=== PATIENT | male | born 1990 | race Hispanic/Latino ===

== ENCOUNTER 2018-07-26 13:50 | Inpatient (IN) | payer OTHER ==
[2018-07-26] MEDS ORDERED: Sodium Chloride 0.9% 1,000 ML IV STA (14:24)
--- NOTE | 2018-07-26 14:29 | ED PDOC ---
HPI: Chest Pain Time Seen by Provider: 07/26/18 14:16 Chief Complaint (Nursing): Chest Pain Chief Complaint (Provider): Chest tightness History Per: Patient History/Exam Limitations: no limitations Onset/Duration Of Symptoms: Days (3 weeks) Additional Complaint(s): Pt. with chest tightness for 3 weeks. Saw pcp and got a cxr. Then was scheduled to get a ct with contrast, but it got rescheduled so he came to the ER. Pt. also had a syncope episode on Wednesday where he woke, felt nauseated, and then had a syncope episode. Woke up with pain to the frontal left forehead where he bumped his head. Unsure how long he was out for. No weakness, numbness, tingles, dizziness, palpitations. No neck pain, calf pain, long distance travel. Past Medical History Reviewed: Nursing Documentation, Vital Signs Vital Signs: Last Vital Signs Temp 97.2 F L 07/26/18 13:59 Pulse 106 H 07/26/18 13:59 Resp 18 07/26/18 13:59 BP 132/80 07/26/18 13:59 Pulse Ox 96 07/26/18 13:59 - Medical History PMH: No Chronic Diseases - Surgical History Surgical History: No Surg Hx - Family History Family History: States: Unknown Family Hx - Living Arrangements Living Arrangements: With Family - Home Medications Home Medications: Ambulatory Orders Medication Instructions Recorded Albuterol Sulfate [Ventolin Hfa] 2 puff IH Q4 PRN 07/26/18 RX: Fluticasone Propionate 1 puff IH Q12 07/26/18 [Flovent Hfa] - Allergies Allergies/Adverse Reactions: Allergies Allergy/AdvReac Type Severity Reaction Status Date / Time Penicillins Allergy RASH Verified 07/26/18 14:06 Review of Systems ROS Statement: Except As Marked, All Systems Reviewed And Found Negative Cardiovascular: Positive for: Chest Pain Gastrointestinal: Positive for: Nausea Neurological: Positive for: Headache, Other (syncope) Physical Exam - Reviewed Nursing Documentation Reviewed: Yes Vital Signs Reviewed: Yes - Physical Exam Appears: Positive for: Non-toxic, No Acute Distress Head Exam: Negative for: ATRAUMATIC (small 1cm vertical abrasion to the left forehead, nontender; no echymosis) Skin: Positive for: Normal Color, Warm, DRY Eye Exam: Positive for: EOMI, Normal appearance, PERRL ENT: Positive for: Normal ENT Inspection Neck: Positive for: Normal, Painless ROM Cardiovascular/Chest: Positive for: Regular Rate, Rhythm Respiratory: Positive for: CNT, Normal Breath Sounds Gastrointestinal/Abdominal: Positive for: Normal Exam, Soft. Negative for: Tenderness Back: Positive for: Normal Inspection. Negative for: L CVA Tenderness, R CVA Tenderness Extremity: Positive for: Normal ROM. 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 Negative for: Motor/Sensory Deficits, Aphasia, Facial Droop - Laboratory Results Result Diagrams: 07/28/18 03:30 07/27/18 04:31 Interpretation Of Abn Labs: no acute - ECG ECG: Positive for: Interpreted By Me, Viewed By Me ECG Rhythm: Positive for: Normal QRS, Normal ST Segment, Sinus Rhythm O2 Sat by Pulse Oximetry: 96 Pulse Ox Interpretation: Normal - CT Scan/US ct head Other Rad Studies (CT/US): Read By Radiologist Other Rad Interpretation: no acute - Progress ED Course And Treament: 1547: Stable. AAOx3. Pain free. Dr. Vaughan to take over care. Disposition - Clinical Impression Clinical Impression: Chest pain, Syncope - Patient ED Disposition Is Patient to be Admitted: Transfer of Care Counseled Patient/Family Regarding: Studies Performed, Diagnosis, Need For Followup - Disposition Disposition: Transfer of Care Disposition Time: 15:47 Condition: STABLE Patient Signed Over To: Yael Vaughan
[2018-07-26 14:50] LABS: BASO # 0.1 K/uL (0.0-0.2); BASO % 2.3 % (0.0-2.0); EOS # 0.1 K/uL (0.0-0.7); EOS % 2.5 % (0.0-4.0); HEMOGLOBIN 11.8 g/dL (12.0-18.0); LYMPH # 0.7 K/uL (1.0-4.3); LYMPH % 14.6 % (20.0-40.0); MEAN CORPUSCULAR HEMOGLOBIN 26.3 pg (27.0-31.0); MEAN CORPUSCULAR HGB CONC 32.8 g/dL (33.0-37.0); MEAN PLATELET VOLUME 7.5 fl (7.2-11.7); MONO # 0.5 K/uL (0.0-0.8); MONO % 9.5 % (0.0-10.0); NEUT # 3.5 K/uL (1.8-7.0); NEUT % 71.1 % (50.0-75.0); RBC 4.5 Mil/uL (4.40-5.90); RED CELL DISTRIBUTION WIDTH 14.2 % (11.5-14.5); WHITE BLOOD COUNT 4.9 K/uL (4.8-10.8)
[2018-07-26 15:04] LABS: ALB/GLOB RATIO 1.3 (1.0-2.1)
[2018-07-26 15:08] LABS: ALBUMIN 4.6 g/dL (3.5-5.0); ALT/SGPT 22 U/L (21-72); AST/SGOT 30 U/L (17-59); BLOOD UREA NITROGEN 13 mg/dl (9-20); CALCIUM 9.9 mg/dL (8.4-10.2); GFR NON-AFRICAN AMERICAN > 60
--- NOTE | 2018-07-26 15:14 | CT ---
Date of service: 07/26/2018 PROCEDURE: CT HEAD WITHOUT CONTRAST. HISTORY: Headache COMPARISON: None available. TECHNIQUE: Axial computed tomography images were obtained through the head/brain without intravenous contrast. Radiation dose: Total exam DLP = 814.57 mGy-cm. This CT exam was performed using one or more of the following dose reduction techniques: Automated exposure control, adjustment of the mA and/or kV according to patient size, and/or use of iterative reconstruction technique. FINDINGS: HEMORRHAGE: No intracranial hemorrhage. BRAIN: Mcneal-white matter differentiation is preserved. There is no mass, mass effect or abnormal extra-axial fluid collection. There is no territorial infarction. The midline sagittal structures are normal. VENTRICLES: The ventricles are normal in size, shape and configuration. CALVARIUM: There is no calvarial fracture or extracranial soft tissue swelling. PARANASAL SINUSES: Predominantly clear. MASTOID AIR CELLS: Predominantly clear. OTHER FINDINGS: None. IMPRESSION: No acute intracranial abnormality.
[2018-07-26 15:16] LABS: INR 1.3; PROTHROMBIN TIME 14.3 Seconds (9.8-13.1)
[2018-07-26 15:18] LABS: PARTIAL THROMBOPLASTIN TIME 32.8 Seconds (25.6-37.1)
[2018-07-26] MEDS ORDERED: Sodium Chloride 0.9% 50 ML IV ONE (15:19)
[2018-07-26] MEDS ORDERED: Iodixanol 320 MG/ML 100 ML BOTTLE IV ONE (15:19)
--- NOTE | 2018-07-26 16:36 | ED PDOC ---
- Laboratory Results Result Diagrams: 07/29/18 04:20 07/29/18 04:20 - ECG O2 Sat by Pulse Oximetry: 96 Medical Decision Making Medical Decision Making: Time: 1600 --Patient is endorsed to provider by Dr. Rivera. Patient presents with 3 weeks of chest pain and requesting a CT scan. ED work-up, to this point, has been negative. Pending CTA chest results to R/O PE. Time: 1632 --CTA chest results discussed with radiologist who reports a large pericardial effusion and mediastinal mass. Differential diagnosis includes lymphoma and thymoma. Will contact cardiac surgery and inform patient of findings. ----- Scribe Attestation: Documented by Elodia Sarmiento, acting as a scribe for Yael Vaughan MD. Provider Scribe Attestation: All medical record entries made by the Scribe were at my direction and personally dictated by me. I have reviewed the chart and agree that the record accurately reflects my personal performance of the history, physical exam, medical decision making, and the department course for this patient. I have also personally directed, reviewed, and agree with the discharge instructions and di sposition. 5:09pm --Pt informed of pericardial fluid and mediastinal masses and informed that he w ill need thoracic surgery as well as hematology/oncology workup. Spoke with patient's pmd, Dr. Brad Webb ([phone]) and he is aware of status. Spoke with Dr. He and surgery resident who will evaluate for pericardiocentesis. Spoke with Dr. Ahmadi to admit the patient to telemetry under service. Awaiting hematology consult. Pt remains hemodynamically stable. 2015: Pt has been evaluated by surgery and admitted under Dr. Ahmadi. Disposition - Clinical Impression Clinical Impression: Chest pain, Syncope - POA Present On Arrival: None - Disposition Disposition: Admitted as In-Patient Disposition Time: 17:09 Condition: STABLE
--- NOTE | 2018-07-26 16:37 | CT ---
Date of service: 07/26/2018 PROCEDURE: CT Chest with contrast (Pulmonary Angiogram) HISTORY: Chest pain COMPARISON: None available. TECHNIQUE: Axial computed tomography images were obtained of the chest in the pulmonary arterial phase of enhancement. Coronal and sagittal reformatted images were created and reviewed. Intravenous contrast dose: 92 cc Visipaque 320 Radiation dose: Total exam DLP = 0.0 mGy-cm. This CT exam was performed using one or more of the following dose reduction techniques: Automated exposure control, adjustment of the mA and/or kV according to patient size, and/or use of iterative reconstruction technique. FINDINGS: PULMONARY ARTERIES: Examination is of suboptimal diagnostic quality for evaluation of pulmonary embolism due to missed bolus. There are no filling defects in the central pulmonary arteries to suggest acute pulmonary embolism. AORTA: No acute findings. No thoracic aortic aneurysm. No aortic atherosclerotic calcification or mural plaque present. LUNGS: The lungs are well inflated. There is compressive atelectasis in the medial aspects of both upper lobe, right middle lobe and lingula. There is dependent atelectasis in the posterior lower lobes. No nodule, mass or pulmonary consolidation. PLEURAL SPACES: No effusion or pneumothorax. HEART: There is a large pericardial effusion with mild mass effect on the ventricles. MEDIASTINUM:: There is a large heterogeneously enhancing mass with hypoenhancing areas in the anterior mediastinum. The mass encases the origin of the great vessels with posterior displacement of the aorta and heart. There is resultant severe narrowing of the right main pulmonary artery and left pulmonary vein. There is also mass effect on the trachea and carlos alberto. BONES, CHEST WALL: Within normal limits for the patient's age. No fracture or destructive lesion OTHER FINDINGS: None. IMPRESSION: 1. Large heterogeneously enhancing anterior mediastinal mass. The differential considerations include lymphoma, thymoma, thymic carcinoma, germ cell tumors and metastasis. Histopathologic correlation is recommended. 2. Large pericardial effusion. 3. No CTA evidence for acute central pulmonary embolism. Important findings were discussed with Dr. Vaughan in the ER on 07/26/2018 at 4:25 p.m.
--- NOTE | 2018-07-26 20:18 | CP.PCM.CON ---
<Giovany Lorenzo - Last Filed: 07/26/18 20:19> History of Present Illness - History of Present Illness History of Present Illness: Surgery: Dr. He CC: Chest tightness / SOB HPI: 27M w. no significant pmh presents for evaluation of chest tightness and SOB. Symptoms have been going on for 2-3 months. It has been accompanied by night sweats and a dry non-productive cough. Pts PMD has given Rx inhaler and abx w. no relief. Pt also reports unintentional 10lb weight loss in the past month. He has decreased appetite, no N/V. Normal BM. He denies CP/palpitations. PMH: none PSH: L4-L5 fusion Meds: MAR reviewed ALL: PCN>hives Social: +Marijuana, no ETOH/tobacco Fhx: Grandfather- Prostate CA Review of Systems - Review of Systems All systems: reviewed and no additional remarkable complaints except (HPI) Past Patient History - Past Social History Smoking Status: Never Smoked - PSYCHIATRIC Hx Substance Use: No - SURGICAL HISTORY Other/Comment: back surgery - ANESTHESIA Hx Anesthesia: No Hx Anesthesia Reactions: No Hx Malignant Hyperthermia: No Meds Allergies/Adverse Reactions: Allergies Allergy/AdvReac Type Severity Reaction Status Date / Time Penicillins Allergy RASH Verified 07/26/18 14:06 Physical Exam - Constitutional Appears: Non-toxic, No Acute Distress - Head Exam Head Exam: ATRAUMATIC, NORMOCEPHALIC - Eye Exam Eye Exam: EOMI - ENT Exam ENT Exam: Mucous Membranes Moist - Neck Exam Neck exam: Positive for: Full Rom - Respiratory Exam Respiratory Exam: NORMAL BREATHING PATTERN. absent: Accessory Muscle Use, Respiratory Distress - Cardiovascular Exam Cardiovascular Exam: REGULAR RHYTHM - GI/Abdominal Exam GI & Abdominal Exam: Soft. absent: Tenderness - Extremities Exam Extremities exam: Positive for: normal inspection - Neurological Exam Neurological exam: Alert, Oriented x3 - Psychiatric Exam Psychiatric exam: Normal Affect, Normal Mood - Skin Skin Exam: Dry, Normal Color, Warm Results - Vital Signs Recent Vital Signs: Last Vital Signs Temp 98.1 F 07/26/18 19:52 Pulse 90 07/26/18 19:52 Resp 14 07/26/18 19:52 BP 149/79 07/26/18 19:52 Pulse Ox 95 07/26/18 19:52 - Labs Result Diagrams: 07/26/18 14:40 07/26/18 14:40 Labs: Laboratory Results - last 24 hr 07/26/18 07/26/18 07/26/18 14:40 14:40 14:40 WBC 4.9 RBC 4.50 Hgb 11.8 L Hct 36.0 MCV 80.0 MCH 26.3 L MCHC 32.8 L RDW 14.2 Plt Count 334 MPV 7.5 Neut % (Auto) 71.1 Lymph % (Auto) 14.6 L [place] % (Auto) 9.5 Eos % (Auto) 2.5 Baso % (Auto) 2.3 H Neut # (Auto) 3.5 Lymph # (Auto) 0.7 L [place] # (Auto) 0.5 Eos # (Auto) 0.1 Baso # (Auto) 0.1 PT 14.3 H INR 1.3 APTT 32.8 Sodium 139 Potassium 4.1 Chloride 103 Carbon Dioxide 25 Anion Gap 15 BUN 13 Creatinine 0.9 Est GFR ( Amer) > 60 Est GFR (Non-Af Amer) > 60 Random Glucose 94 Calcium 9.9 Total Bilirubin 1.0 AST 30 ALT 22 Alkaline Phosphatase 60 Troponin I < 0.0120 Total Protein 8.1 Albumin 4.6 Globulin 3.5 Albumin/Globulin Ratio 1.3 - Imaging and Cardiology CT scan - chest Status: Image reviewed by me, Report reviewed by me CT scan - head Status: Image reviewed by me, Report reviewed by me Assessment & Plan - Assessment and Plan (Free Text) Assessment: 27M w. anterior mediastinal mass w. pericardial effusion -recommend tele -F/U ECHO, need for pericardial window will be based on results -F/U tumor markers -Recommend IR for bx -d/w attending Maura PGY4 <Jeramie He - Last Filed: 08/05/18 14:01> Results - Vital Signs Recent Vital Signs: Last Vital Signs Temp 98.9 F 07/29/18 12:00 Pulse 108 H 07/29/18 12:00 Resp 18 07/29/18 12:00 BP 139/81 07/29/18 12:00 Pulse Ox 96 08/02/18 05:38 - Labs Result Diagrams: 07/29/18 04:20 07/29/18 04:20
[2018-07-26] MEDS ORDERED: Albuterol-Ipratrop 3 mg / 0.5 (3 ml) UD INH PRN (23:24)
[2018-07-27 05:30] LABS: HEMOGLOBIN 11.6 g/dL (12.0-18.0); MEAN CORPUSCULAR HEMOGLOBIN 26.2 pg (27.0-31.0); MEAN CORPUSCULAR HGB CONC 32.7 g/dL (33.0-37.0); RBC 4.42 Mil/uL (4.40-5.90); RED CELL DISTRIBUTION WIDTH 14.3 % (11.5-14.5); WHITE BLOOD COUNT 4.6 K/uL (4.8-10.8)
[2018-07-27 05:37] LABS: ALB/GLOB RATIO 1.3 (1.0-2.1); ALBUMIN 4.3 g/dL (3.5-5.0); ALT/SGPT 22 U/L (21-72); AST/SGOT 29 U/L (17-59); BLOOD UREA NITROGEN 11 mg/dl (9-20); CALCIUM 9.8 mg/dL (8.4-10.2); GFR NON-AFRICAN AMERICAN > 60; HDL CHOLESTEROL 27 MG/DL (30-70)
[2018-07-27 05:48] LABS: LDL CHOLESTEROL 120 mg/dL (0-129)
--- NOTE | 2018-07-27 07:01 | CP.PCM.PN ---
Subjective - Date & Time of Evaluation Date of Evaluation: 07/27/18 Time of Evaluation: 06:55 - Subjective Subjective: CT surgery: Dr. He Patient seen and examined this am at bedside. NAEO per nursing. Patient states he is feeling well and has no complaints. He denies SILVEIRA, dizziness, f/c, CP, SOB, n/v, abdominal pain and extremity pain or weakness. Objective - Vital Signs/Intake and Output Vital Signs (last 24 hours): Temp Pulse Resp BP Pulse Ox 98 F 85 18 113/78 97 07/27/18 05:04 07/27/18 05:04 07/27/18 05:04 07/27/18 05:04 07/27/18 05:04 - Medications Medications: Current Medications Albuterol/Ipratropium (Duoneb 3 Mg/0.5 Mg (3 Ml) Ud) 3 ml INH RQ6 PRN PRN Reason: Shortness of Breath Zolpidem Tartrate (Ambien) 5 mg PO HS PRN PRN Reason: Sleep - Labs Labs: 07/27/18 04:31 07/27/18 04:31 PT 14.3 Seconds (9.8-13.1) H 07/26/18 14:40 INR 1.3 07/26/18 14:40 APTT 32.8 Seconds (25.6-37.1) 07/26/18 14:40 - Constitutional Appears: Well, Non-toxic, No Acute Distress - Head Exam Head Exam: ATRAUMATIC, NORMOCEPHALIC - Eye Exam Eye Exam: EOMI - ENT Exam ENT Exam: Mucous Membranes Moist - Respiratory Exam Respiratory Exam: NORMAL BREATHING PATTERN - Cardiovascular Exam Cardiovascular Exam: REGULAR RHYTHM - GI/Abdominal Exam GI & Abdominal Exam: Soft. absent: Distended, Guarding, Tenderness - Extremities Exam Extremities Exam: absent: Calf Tenderness, Pedal Edema - Neurological Exam Neurological Exam: Alert, Awake, Oriented x3 - Psychiatric Exam Psychiatric exam: Normal Affect, Normal Mood - Skin Skin Exam: Dry, Intact, Normal Color, Warm Assessment and Plan - Assessment and Plan (Free Text) Assessment: 27 yr old male with newly diagnosed mediastinal mass and Plan: f/u ECHO F/u IR biopsy f/u tumor markers patient to be transferred to [facility] per patient preference, urgency of transfer discussed with patient and his will d/w Dr. Neri Ventura, PGY 1
--- NOTE | 2018-07-27 07:58 | CARD ---
APPROVED REPORT Date of service: 07/26/2018 EKG Measurement Heart [id number] <Conclusion> Sinus tachycardia Low voltage QRS Borderline ECG
[2018-07-27] MEDS ORDERED: Pneumococcal 23-Valent Vaccine IM ONE (09:00)
[2018-07-27] MEDS ORDERED: Influenza Vaccine 60 MCG/0.5 ML SYR (3 yr & up) IM ONE (09:00)
--- NOTE | 2018-07-27 09:36 | CARD ---
APPROVED REPORT Date of service: 07/27/2018 EXAM: Two-dimensional and M-mode echocardiogram with Doppler and color Doppler. Other Information Quality : GoodRhythm : Tachycardia INDICATION Pericardial Effusion 2D DIMENSIONS IVSd0.91 (0.7-1.1cm)LVDd4.29 (3.9-5.9cm) LVOT Diameter2.50 (1.8-2.4cm)PWd1.08 (0.7-1.1cm) IVSs1.33 (0.8-1.2cm)LVDs2.74 (2.5-4.0cm) FS (%) 36.2 %PWs1.64 (0.8-1.2cm) M-Mode DIMENSIONS Left Atrium (MM)2.28 (2.5-4.0cm)IVSd1.43 (0.7-1.1cm) Aortic Root3.24 (2.2-3.7cm)LVDd4.44 (4.0-5.6cm) Aortic Cusp Exc.2.05 (1.5-2.0cm)PWd1.43 (0.7-1.1cm) IVSs1.93 cmFS (%) 55 % LVDs2.01 (2.0-3.8cm)PWs2.01 cm Mitral Valve E/A ratio0.0 TDI E/Lateral E'0.0E/Medial E'0.0 LEFT VENTRICLE The left ventricle is normal size. There is normal left ventricular wall thickness. The left ventricular function is normal. LVEF is 60-65%. There is normal LV segmental wall motion. The left ventricular diastolic function is normal. RIGHT VENTRICLE The right ventricle is normal size. There is normal right ventricular wall thickness. RV free wall shows buckling during diastole The right ventricular systolic function is normal. ATRIA The left atrium size is normal. Rt atrial free wall shows marked compression during diastole. AORTIC VALVE The aortic valve is normal in structure. No aortic regurgitation is present. There is no aortic valvular stenosis. MITRAL VALVE The mitral valve is normal in structure. There is no evidence of mitral valve prolapse. There is no mitral valve stenosis. There is no mitral valve regurgitation noted. TRICUSPID VALVE The tricuspid valve is normal in structure. There is no tricuspid valve regurgitation noted. PULMONIC VALVE The pulmonic valve is not well visualized. There is no pulmonic valvular regurgitation. GREAT VESSELS The aortic root is normal in size. IVC is dilated and fails to collapse during inspiration. PERICARDIAL EFFUSION Large quantity of pericardial fluid collection mostly anterior to the right ventricle seen <Conclusion> Large quantity of pericardial fluid collection mostly anterior to the right ventricle seen The left ventricular function is normal. LVEF is 60-65%. RV free wall shows buckling during diastole Rt atrial free wall shows marked compression during diastole. IVC is dilated and fails to collapse during inspiration. These findings are strongly suggestive of cardiac temponade. Clinical correlation is strongly reccomended.
--- NOTE | 2018-07-27 10:13 | CP.PCM.CON ---
History of Present Illness - History of Present Illness History of Present Illness: This 27-year-old man with no significant past history except surgery for herniated disc came to the emergency room complaining of a dry cough and a sense of tightness in the chest off and on. This has evolved over last month to month and a half and is accompanied by a mild degree of weight loss. He denies any shortness of breath and reports significant effort tolerance. He denies any orthopnea. He does admit to a dry cough. He denies any palpitations. There is no history of smoking or recreational drug use. Physical examination shows a young man who is slightly overweight alert awake coherent afebrile able to lie virtually flat and carry on a conversation. As a heart rate of 100 bpm and regular with a blood pressure of 148/90 meters of mercury. His jugular venous pressure was mildly elevated there was no edema over his lower extremity. The pedal pulses were well felt. His oximetries were warm and nailbeds were pink. There was no central or peripheral cyanosis. The apex was not palpable. The first and second heart sounds were distant but normal. There was no pericardial rub or pericardial knock. There was no murmur or gallop. Lungs were clear. His electrocardiogram showed sinus tachycardia with lo w QRS voltage. Narrow Q waves were detected in leads 2,3 and aVF. His lab data was noted. His echocardiogram shows a large quantity of pericardial fluid with findings suggestive of early cardiac temponade. A approximately 5 cm mass was seen anterior to the right ventricular free wall. CT scan shows evidence of pericardial effusion and a mediastinal mass as well. Impression: Mediastinal mass of uncertain origin. Pericardial effusion with echocardiographic findings of early cardiac temponade. The patient is hemodynamically stable at this juncture and does not show any evidence of reduced cardiac output or reduced tissue perfusion. The patient and his family wish to continue his care at [facility]. He is stable to make the transition. Past Patient History - Past Medical History & Family History Past Medical History?: No - Past Social History Smoking Status: Never Smoked - CARDIAC Hx Cardiac Disorders: No - PULMONARY Hx Respiratory Disorders: No - NEUROLOGICAL Hx Neurological Disorder: No - HEENT Hx HEENT Problems: No - RENAL Hx Chronic Kidney Disease: No - ENDOCRINE/METABOLIC Hx Endocrine Disorders: No - HEMATOLOGICAL/ONCOLOGICAL Hx Blood Disorders: No - INTEGUMENTARY Hx Dermatological Problems: No - MUSCULOSKELETAL/RHEUMATOLOGICAL Hx Musculoskeletal Disorders: No Hx Falls: No - GENITOURINARY/GYNECOLOGICAL Hx Genitourinary Disorders: No - PSYCHIATRIC Hx Psychophysiologic Disorder: No Hx Substance Use: No - SURGICAL HISTORY Hx Surgeries: Yes Other/Comment: back surgery - ANESTHESIA Hx Anesthesia: Yes Hx Anesthesia Reactions: No Hx Malignant Hyperthermia: No Has any member of the family had a problem w/ anesthesia?: No Meds Allergies/Adverse Reactions: Allergies Allergy/AdvReac Type Severity Reaction Status Date / Time Penicillins Allergy RASH Verified 07/26/18 14:06 - Medications Medications: Current Medications Albuterol/Ipratropium (Duoneb 3 Mg/0.5 Mg (3 Ml) Ud) 3 ml INH RQ6 PRN PRN Reason: Shortness of Breath Zolpidem Tartrate (Ambien) 5 mg PO HS PRN PRN Reason: Sleep Results - Vital Signs Recent Vital Signs: Last Vital Signs Temp 98.2 F 07/27/18 08:08 Pulse 107 H 07/27/18 08:08 Resp 18 07/27/18 08:08 BP 125/72 07/27/18 08:08 Pulse Ox 95 07/27/18 08:08 - Labs Result Diagrams: 07/27/18 04:31 07/27/18 04:31 Labs: Laboratory Results - last 24 hr 07/26/18 07/26/18 07/26/18 14:40 14:40 14:40 WBC 4.9 RBC 4.50 Hgb 11.8 L Hct 36.0 MCV 80.0 MCH 26.3 L MCHC 32.8 L RDW 14.2 Plt Count 334 MPV 7.5 Neut % (Auto) 71.1 Lymph % (Auto) 14.6 L [place] % (Auto) 9.5 Eos % (Auto) 2.5 Baso % (Auto) 2.3 H Neut # (Auto) 3.5 Lymph # (Auto) 0.7 L [place] # (Auto) 0.5 Eos # (Auto) 0.1 Baso # (Auto) 0.1 PT 14.3 H INR 1.3 APTT 32.8 Sodium 139 Potassium 4.1 Chloride 103 Carbon Dioxide 25 Anion Gap 15 BUN 13 Creatinine 0.9 Est GFR ( Amer) > 60 Est GFR (Non-Af Amer) > 60 Random Glucose 94 Calcium 9.9 Total Bilirubin 1.0 AST 30 ALT 22 Alkaline Phosphatase 60 Troponin I < 0.0120 Total Protein 8.1 Albumin 4.6 Globulin 3.5 Albumin/Globulin Ratio 1.3 Triglycerides Cholesterol LDL Cholesterol Direct HDL Cholesterol Alpha Fetoprotein TSH 3rd Generation Beta HCG, Quant 07/26/18 07/26/18 07/27/18 14:40 20:03 04:31 WBC 4.6 L RBC 4.42 Hgb 11.6 L Hct 35.4 MCV 80.0 MCH 26.2 L MCHC 32.7 L RDW 14.3 Plt Count 322 MPV Neut % (Auto) Lymph % (Auto) [place] % (Auto) Eos % (Auto) Baso % (Auto) Neut # (Auto) Lymph # (Auto) [place] # (Auto) Eos # (Auto) Baso # (Auto) PT INR APTT Sodium Potassium Chloride Carbon Dioxide Anion Gap BUN Creatinine Est GFR ( Amer) Est GFR (Non-Af Amer) Random Glucose Calcium Total Bilirubin AST ALT Alkaline Phosphatase Troponin I Total Protein Albumin Globulin Albumin/Globulin Ratio Triglycerides Cholesterol LDL Cholesterol Direct HDL Cholesterol Alpha Fetoprotein 1.5 TSH 3rd Generation Beta HCG, Quant < 2.39 07/27/18 04:31 WBC RBC Hgb Hct MCV MCH MCHC RDW Plt Count MPV Neut % (Auto) Lymph % (Auto) [place] % (Auto) Eos % (Auto) Baso % (Auto) Neut # (Auto) Lymph # (Auto) [place] # (Auto) Eos # (Auto) Baso # (Auto) PT INR APTT Sodium 141 Potassium 4.1 Chloride 105 Carbon Dioxide 25 Anion Gap 15 BUN 11 Creatinine 1.0 Est GFR ( Amer) > 60 Est GFR (Non-Af Amer) > 60 Random Glucose 90 Calcium 9.8 Total Bilirubin 1.0 AST 29 ALT 22 Alkaline Phosphatase 60 Troponin I Total Protein 7.6 Albumin 4.3 Globulin 3.4 Albumin/Globulin Ratio 1.3 Triglycerides 81 Cholesterol 151 LDL Cholesterol Direct 120 HDL Cholesterol 27 L Alpha Fetoprotein TSH 3rd Generation 3.79 Beta HCG, Quant
--- NOTE | 2018-07-27 11:28 | CP.PCM.CON ---
History of Present Illness - History of Present Illness History of Present Illness: 27 year old male with a history of herniated disc s/p surgery presenting with increasing shortness of breath and chest pain, found to have a mediastinal mass and pericardial effusion. The patient notes to progressive chest discomfort and shortness of breath. He notes to passing out 2-3 days ago. He also notes to 15-20 pound weight loss. A CT chest revealed a mediastinal mass and pericardial effusion. His works at [employer] and would like to undergo further work up there. Past medical history: Herniated disc Past surgical history: Back surgery Family history: Denies hematologic and oncologic problems Social history: Denies tobacco, alcohol, and illicit drug use. Allergies: Penicillins Review of systems: All remaining review of systems including HEENT, cardiovascular, respiratory, gastrointestinal, genitourinary, musculoskeletal, dermatologic, neurologic, and psychiatric are negative unless mentioned in the HPI. Past Patient History - Past Medical History & Family History Past Medical History?: No - Past Social History Smoking Status: Never Smoked - CARDIAC Hx Cardiac Disorders: No - PULMONARY Hx Respiratory Disorders: No - NEUROLOGICAL Hx Neurological Disorder: No - HEENT Hx HEENT Problems: No - RENAL Hx Chronic Kidney Disease: No - ENDOCRINE/METABOLIC Hx Endocrine Disorders: No - HEMATOLOGICAL/ONCOLOGICAL Hx Blood Disorders: No - INTEGUMENTARY Hx Dermatological Problems: No - MUSCULOSKELETAL/RHEUMATOLOGICAL Hx Musculoskeletal Disorders: No Hx Falls: No - GENITOURINARY/GYNECOLOGICAL Hx Genitourinary Disorders: No - PSYCHIATRIC Hx Psychophysiologic Disorder: No Hx Substance Use: No - SURGICAL HISTORY Hx Surgeries: Yes Other/Comment: back surgery - ANESTHESIA Hx Anesthesia: Yes Hx Anesthesia Reactions: No Hx Malignant Hyperthermia: No Has any member of the family had a problem w/ anesthesia?: No Meds Allergies/Adverse Reactions: Allergies Allergy/AdvReac Type Severity Reaction Status Date / Time Penicillins Allergy RASH Verified 07/26/18 14:06 - Medications Medications: Current Medications Albuterol/Ipratropium (Duoneb 3 Mg/0.5 Mg (3 Ml) Ud) 3 ml INH RQ6 PRN PRN Reason: Shortness of Breath Zolpidem Tartrate (Ambien) 5 mg PO HS PRN PRN Reason: Sleep Physical Exam - Head Exam Head Exam: ATRAUMATIC - Eye Exam Eye Exam: Normal appearance - ENT Exam ENT Exam: Mucous Membranes Dry - Respiratory Exam Respiratory Exam: NORMAL BREATHING PATTERN - Cardiovascular Exam Cardiovascular Exam: +S1, +S2 - GI/Abdominal Exam GI & Abdominal Exam: Normal Bowel Sounds - Extremities Exam Extremities exam: Positive for: normal inspection - Neurological Exam Neurological exam: Oriented x3 - Psychiatric Exam Psychiatric exam: Normal Affect, Normal Mood - Skin Skin Exam: Warm Results - Vital Signs Recent Vital Signs: Last Vital Signs Temp 98.2 F 07/27/18 08:08 Pulse 107 H 07/27/18 08:08 Resp 18 07/27/18 08:08 BP 125/72 07/27/18 08:08 Pulse Ox 95 07/27/18 08:08 - Labs Result Diagrams: 07/29/18 04:20 07/29/18 04:20 Labs: Laboratory Results - last 24 hr 07/26/18 07/26/18 07/26/18 14:40 14:40 14:40 WBC 4.9 RBC 4.50 Hgb 11.8 L Hct 36.0 MCV 80.0 MCH 26.3 L MCHC 32.8 L RDW 14.2 Plt Count 334 MPV 7.5 Neut % (Auto) 71.1 Lymph % (Auto) 14.6 L Thomas % (Auto) 9.5 Eos % (Auto) 2.5 Baso % (Auto) 2.3 H Neut # (Auto) 3.5 Lymph # (Auto) 0.7 L Thomas # (Auto) 0.5 Eos # (Auto) 0.1 Baso # (Auto) 0.1 PT 14.3 H INR 1.3 APTT 32.8 Sodium 139 Potassium 4.1 Chloride 103 Carbon Dioxide 25 Anion Gap 15 BUN 13 Creatinine 0.9 Est GFR ( Amer) > 60 Est GFR (Non-Af Amer) > 60 Random Glucose 94 Calcium 9.9 Total Bilirubin 1.0 AST 30 ALT 22 Alkaline Phosphatase 60 Troponin I < 0.0120 Total Protein 8.1 Albumin 4.6 Globulin 3.5 Albumin/Globulin Ratio 1.3 Triglycerides Cholesterol LDL Cholesterol Direct HDL Cholesterol Alpha Fetoprotein TSH 3rd Generation Beta HCG, Quant 07/26/18 07/26/18 07/27/18 14:40 20:03 04:31 WBC 4.6 L RBC 4.42 Hgb 11.6 L Hct 35.4 MCV 80.0 MCH 26.2 L MCHC 32.7 L RDW 14.3 Plt Count 322 MPV Neut % (Auto) Lymph % (Auto) Thomas % (Auto) Eos % (Auto) Baso % (Auto) Neut # (Auto) Lymph # (Auto) Thomas # (Auto) Eos # (Auto) Baso # (Auto) PT INR APTT Sodium Potassium Chloride Carbon Dioxide Anion Gap BUN Creatinine Est GFR ( Amer) Est GFR (Non-Af Amer) Random Glucose Calcium Total Bilirubin AST ALT Alkaline Phosphatase Troponin I Total Protein Albumin Globulin Albumin/Globulin Ratio Triglycerides Cholesterol LDL Cholesterol Direct HDL Cholesterol Alpha Fetoprotein 1.5 TSH 3rd Generation Beta HCG, Quant < 2.39 07/27/18 04:31 WBC RBC Hgb Hct MCV MCH MCHC RDW Plt Count MPV Neut % (Auto) Lymph % (Auto) Thomas % (Auto) Eos % (Auto) Baso % (Auto) Neut # (Auto) Lymph # (Auto) Thomas # (Auto) Eos # (Auto) Baso # (Auto) PT INR APTT Sodium 141 Potassium 4.1 Chloride 105 Carbon Dioxide 25 Anion Gap 15 BUN 11 Creatinine 1.0 Est GFR ( Amer) > 60 Est GFR (Non-Af Amer) > 60 Random Glucose 90 Calcium 9.8 Total Bilirubin 1.0 AST 29 ALT 22 Alkaline Phosphatase 60 Troponin I Total Protein 7.6 Albumin 4.3 Globulin 3.4 Albumin/Globulin Ratio 1.3 Triglycerides 81 Cholesterol 151 LDL Cholesterol Direct 120 HDL Cholesterol 27 L Alpha Fetoprotein TSH 3rd Generation 3.79 Beta HCG, Quant Assessment & Plan (1) Pericardial effusion Assessment and Plan: ? malignant cardiology evaluation patient wishes further testing and treatment at [facility] Status: Acute (2) Mediastinal mass Assessment and Plan: concerning for malignancy; AFP, BHCG, LDH patient requesting further work up and treatment at [facility] Status: Acute Priority: High (3) Anemia Assessment and Plan: retic count, b12, folate, ferritin, FOBT to further characterize Thank you for this interesting consult. Status: Acute
--- NOTE | 2018-07-27 11:57 | CP.PCM.HP ---
History of Present Illness - History of Present Illness History of Present Illness: 27 y/o M, No significant PMHx, but back surgery, came to [facility] on 07/26/18 to be evaluated for SOB associated to dry cough, chest tightness/heaviness which is continue, midsternal, moderate severity of 6:10, associated to night sweats for the last 3 weeks. Pt with gradually increased symptoms, using inhalers at home and no relief. As per Pt; He had a syncope with LOC on 07/24/18, sustaining a bump in his frontal left forehead and after having nausea/ headache. Worsening symptom: Increased chest tightness with cough, Lack of appetite, unintentional loss of about 10 Lbs in a month. Pt denied: Fever, chills, v/d, abdominal pain, urinary symptoms, CP, palpitations, weakness, numbness, productive cough, sick contact, recent travel out of [facility]. CT Chest shows: No PE, a large Pericardial effusion and Mediastinal mass, severe narrowing of the R main pulmonary artery and L pulmonary vein, mass effect on the trachea and Mercedes. Eco: Large quantity Pericardial fluid with findings suggestive for earlier Cardiac Temponade. Present on Admission - Present on Admission Any Indicators Present on Admission: No Review of Systems - Constitutional Constitutional: Headache, Weight Loss - EENT Eyes: Requires Corrective Lenses Ears: Other (negative) Nose/Mouth/Throat: Other (negative) - Cardiovascular Cardiovascular: Other (chest thightness/ heaviness) - Respiratory Respiratory: Cough, Dyspnea, Pain with Coughing - Gastrointestinal Gastrointestinal: Nausea - Genitourinary Genitourinary: Other (negative) - Musculoskeletal Musculoskeletal: Other (negative) - Integumentary Integumentary: Other (abrasion over L forehead) - Neurological Neurological: Headaches, Syncope - Psychiatric Psychiatric: Other (negative) - Endocrine Endocrine: Other (negative) - Hematologic/Lymphatic Hematologic: Other (negative) Past Patient History - Past Medical History & Family History Past Medical History?: No - Past Social History Smoking Status: Never Smoked - CARDIAC Hx Cardiac Disorders: No - PULMONARY Hx Respiratory Disorders: No - NEUROLOGICAL Hx Neurological Disorder: No - HEENT Hx HEENT Problems: No - RENAL Hx Chronic Kidney Disease: No - ENDOCRINE/METABOLIC Hx Endocrine Disorders: No - HEMATOLOGICAL/ONCOLOGICAL Hx Blood Disorders: No - INTEGUMENTARY Hx Dermatological Problems: No - MUSCULOSKELETAL/RHEUMATOLOGICAL Hx Musculoskeletal Disorders: No Hx Falls: No - GENITOURINARY/GYNECOLOGICAL Hx Genitourinary Disorders: No - PSYCHIATRIC Hx Psychophysiologic Disorder: No Hx Substance Use: No - SURGICAL HISTORY Hx Surgeries: Yes Other/Comment: back surgery - ANESTHESIA Hx Anesthesia: Yes Hx Anesthesia Reactions: No Hx Malignant Hyperthermia: No Has any member of the family had a problem w/ anesthesia?: No Meds Allergies/Adverse Reactions: Allergies Allergy/AdvReac Type Severity Reaction Status Date / Time Penicillins Allergy RASH Verified 07/26/18 14:06 Physical Exam - Head Exam Additional comments: Abrasion to L forehead - Eye Exam Eye Exam: PERRL - ENT Exam ENT Exam: Normal Exam - Neck Exam Neck exam: Positive for: Normal Inspection - Respiratory Exam Respiratory Exam: NORMAL BREATHING PATTERN - Cardiovascular Exam Cardiovascular Exam: REGULAR RHYTHM - GI/Abdominal Exam GI & Abdominal Exam: Normal Bowel Sounds, Soft - Extremities Exam Extremities exam: Positive for: normal inspection - Back Exam Back exam: NORMAL INSPECTION - Neurological Exam Neurological exam: Alert, Oriented x3 Additional comments: No motor/sensory deficit. - Skin Skin Exam: Abrasion (L forehead), Warm Results - Vital Signs Recent Vital Signs: Last Vital Signs Temp 99.1 F 07/27/18 11:56 Pulse 102 H 07/27/18 11:56 Resp 18 07/27/18 11:56 BP 113/75 07/27/18 11:56 Pulse Ox 96 07/27/18 11:56 reviewed Jayla - Labs Result Diagrams: 07/27/18 04:31 07/27/18 04:31 Labs: Laboratory Results - last 24 hr 07/26/18 07/26/18 07/26/18 14:40 14:40 14:40 WBC 4.9 RBC 4.50 Hgb 11.8 L Hct 36.0 MCV 80.0 MCH 26.3 L MCHC 32.8 L RDW 14.2 Plt Count 334 MPV 7.5 Neut % (Auto) 71.1 Lymph % (Auto) 14.6 L Ballard % (Auto) 9.5 Eos % (Auto) 2.5 Baso % (Auto) 2.3 H Neut # (Auto) 3.5 Lymph # (Auto) 0.7 L Ballard # (Auto) 0.5 Eos # (Auto) 0.1 Baso # (Auto) 0.1 PT 14.3 H INR 1.3 APTT 32.8 Sodium 139 Potassium 4.1 Chloride 103 Carbon Dioxide 25 Anion Gap 15 BUN 13 Creatinine 0.9 Est GFR ( Amer) > 60 Est GFR (Non-Af Amer) > 60 Random Glucose 94 Calcium 9.9 Total Bilirubin 1.0 AST 30 ALT 22 Alkaline Phosphatase 60 Troponin I < 0.0120 Total Protein 8.1 Albumin 4.6 Globulin 3.5 Albumin/Globulin Ratio 1.3 Triglycerides Cholesterol LDL Cholesterol Direct HDL Cholesterol Alpha Fetoprotein TSH 3rd Generation Beta HCG, Quant 07/26/18 07/26/18 07/27/18 14:40 20:03 04:31 WBC 4.6 L RBC 4.42 Hgb 11.6 L Hct 35.4 MCV 80.0 MCH 26.2 L MCHC 32.7 L RDW 14.3 Plt Count 322 MPV Neut % (Auto) Lymph % (Auto) Ballard % (Auto) Eos % (Auto) Baso % (Auto) Neut # (Auto) Lymph # (Auto) Ballard # (Auto) Eos # (Auto) Baso # (Auto) PT INR APTT Sodium Potassium Chloride Carbon Dioxide Anion Gap BUN Creatinine Est GFR ( Amer) Est GFR (Non-Af Amer) Random Glucose Calcium Total Bilirubin AST ALT Alkaline Phosphatase Troponin I Total Protein Albumin Globulin Albumin/Globulin Ratio Triglycerides Cholesterol LDL Cholesterol Direct HDL Cholesterol Alpha Fetoprotein 1.5 TSH 3rd Generation Beta HCG, Quant < 2.39 07/27/18 04:31 WBC RBC Hgb Hct MCV MCH MCHC RDW Plt Count MPV Neut % (Auto) Lymph % (Auto) Ballard % (Auto) Eos % (Auto) Baso % (Auto) Neut # (Auto) Lymph # (Auto) Ballard # (Auto) Eos # (Auto) Baso # (Auto) PT INR APTT Sodium 141 Potassium 4.1 Chloride 105 Carbon Dioxide 25 Anion Gap 15 BUN 11 Creatinine 1.0 Est GFR ( Amer) > 60 Est GFR (Non-Af Amer) > 60 Random Glucose 90 Calcium 9.8 Total Bilirubin 1.0 AST 29 ALT 22 Alkaline Phosphatase 60 Troponin I Total Protein 7.6 Albumin 4.3 Globulin 3.4 Albumin/Globulin Ratio 1.3 Triglycerides 81 Cholesterol 151 LDL Cholesterol Direct 120 HDL Cholesterol 27 L Alpha Fetoprotein TSH 3rd Generation 3.79 Beta HCG, Quant reviewed J.P. - EKG Data EKG comments: reviewed J.P. - Impressions Impression: Echo: Reviewed J.P. - Imaging and Cardiology Chest x-ray Status: Report reviewed by me (Jayla) CT scan - head Status: Report reviewed by me (Jayla) CT scan - chest Status: Report reviewed by me (Jayla) Assessment & Plan (1) Mediastinal mass Status: Acute Priority: High (2) Pericardial effusion Status: Acute Priority: High (3) Pericardial tamponade Status: Acute Priority: High Comment: Strong suggestive in Echo. - Assessment and Plan (Free Text) Plan: Pt to have Pericardial Window today, Pt and family requesting to continue Tx at [facility] in [place] after procedure. - Date & Time Date: 07/27/18 Time: 10:30
--- NOTE | 2018-07-27 13:18 | CP.PCM.HP ---
Past Patient History - Past Medical History & Family History Past Medical History?: No - Past Social History Smoking Status: Never Smoked - CARDIAC Hx Cardiac Disorders: No - PULMONARY Hx Respiratory Disorders: No - NEUROLOGICAL Hx Neurological Disorder: No - HEENT Hx HEENT Problems: No - RENAL Hx Chronic Kidney Disease: No - ENDOCRINE/METABOLIC Hx Endocrine Disorders: No - HEMATOLOGICAL/ONCOLOGICAL Hx Blood Disorders: No - INTEGUMENTARY Hx Dermatological Problems: No - MUSCULOSKELETAL/RHEUMATOLOGICAL Hx Musculoskeletal Disorders: No Hx Falls: No - GENITOURINARY/GYNECOLOGICAL Hx Genitourinary Disorders: No - PSYCHIATRIC Hx Psychophysiologic Disorder: No Hx Substance Use: No - SURGICAL HISTORY Hx Surgeries: Yes Other/Comment: back surgery - ANESTHESIA Hx Anesthesia: Yes Hx Anesthesia Reactions: No Hx Malignant Hyperthermia: No Has any member of the family had a problem w/ anesthesia?: No Meds Allergies/Adverse Reactions: Allergies Allergy/AdvReac Type Severity Reaction Status Date / Time Penicillins Allergy RASH Verified 07/26/18 14:06 Results - Vital Signs Recent Vital Signs: Last Vital Signs Temp 99.1 F 07/27/18 11:56 Pulse 102 H 07/27/18 11:56 Resp 18 07/27/18 11:56 BP 113/75 07/27/18 11:56 Pulse Ox 96 07/27/18 11:56 - Labs Result Diagrams: 07/27/18 04:31 07/27/18 04:31 Labs: Laboratory Results - last 24 hr 07/26/18 07/26/18 07/26/18 14:40 14:40 14:40 WBC 4.9 RBC 4.50 Hgb 11.8 L Hct 36.0 MCV 80.0 MCH 26.3 L MCHC 32.8 L RDW 14.2 Plt Count 334 MPV 7.5 Neut % (Auto) 71.1 Lymph % (Auto) 14.6 L [place] % (Auto) 9.5 Eos % (Auto) 2.5 Baso % (Auto) 2.3 H Neut # (Auto) 3.5 Lymph # (Auto) 0.7 L [place] # (Auto) 0.5 Eos # (Auto) 0.1 Baso # (Auto) 0.1 PT 14.3 H INR 1.3 APTT 32.8 Sodium 139 Potassium 4.1 Chloride 103 Carbon Dioxide 25 Anion Gap 15 BUN 13 Creatinine 0.9 Est GFR ( Amer) > 60 Est GFR (Non-Af Amer) > 60 Random Glucose 94 Calcium 9.9 Total Bilirubin 1.0 AST 30 ALT 22 Alkaline Phosphatase 60 Troponin I < 0.0120 Total Protein 8.1 Albumin 4.6 Globulin 3.5 Albumin/Globulin Ratio 1.3 Triglycerides Cholesterol LDL Cholesterol Direct HDL Cholesterol Alpha Fetoprotein TSH 3rd Generation Beta HCG, Quant 07/26/18 07/26/18 07/27/18 14:40 20:03 04:31 WBC 4.6 L RBC 4.42 Hgb 11.6 L Hct 35.4 MCV 80.0 MCH 26.2 L MCHC 32.7 L RDW 14.3 Plt Count 322 MPV Neut % (Auto) Lymph % (Auto) [place] % (Auto) Eos % (Auto) Baso % (Auto) Neut # (Auto) Lymph # (Auto) [place] # (Auto) Eos # (Auto) Baso # (Auto) PT INR APTT Sodium Potassium Chloride Carbon Dioxide Anion Gap BUN Creatinine Est GFR ( Amer) Est GFR (Non-Af Amer) Random Glucose Calcium Total Bilirubin AST ALT Alkaline Phosphatase Troponin I Total Protein Albumin Globulin Albumin/Globulin Ratio Triglycerides Cholesterol LDL Cholesterol Direct HDL Cholesterol Alpha Fetoprotein 1.5 TSH 3rd Generation Beta HCG, Quant < 2.39 07/27/18 04:31 WBC RBC Hgb Hct MCV MCH MCHC RDW Plt Count MPV Neut % (Auto) Lymph % (Auto) [place] % (Auto) Eos % (Auto) Baso % (Auto) Neut # (Auto) Lymph # (Auto) [place] # (Auto) Eos # (Auto) Baso # (Auto) PT INR APTT Sodium 141 Potassium 4.1 Chloride 105 Carbon Dioxide 25 Anion Gap 15 BUN 11 Creatinine 1.0 Est GFR ( Amer) > 60 Est GFR (Non-Af Amer) > 60 Random Glucose 90 Calcium 9.8 Total Bilirubin 1.0 AST 29 ALT 22 Alkaline Phosphatase 60 Troponin I Total Protein 7.6 Albumin 4.3 Globulin 3.4 Albumin/Globulin Ratio 1.3 Triglycerides 81 Cholesterol 151 LDL Cholesterol Direct 120 HDL Cholesterol 27 L Alpha Fetoprotein TSH 3rd Generation 3.79 Beta HCG, Quant
--- NOTE | 2018-07-27 13:22 | CP.PCM.PN ---
Subjective - Date & Time of Evaluation Date of Evaluation: 07/27/18 Time of Evaluation: 13:07 - Subjective Subjective: Reason for consultation: Mediastinal mass and large pericaridial effusion. Requseted by Clement Nicholson. 27 yo male, with no significant pmh, presented to ER with hx of chest discomfort. Outside cxr showed a wide mediastinum. follow up ct: a Massive mediatinal mass and pericardial effusion. ECHO this am: suggestive of cardiac tamponade. The pt wants to be transferred to [facility]. In fact they have been making the arrangement for transfer when I walked into the room. I have discussed urgency of transfer for continued care with p[facility] a friend, and pt. a/p: Transfer to [facility]. 6pm 07/27/18 ADDENDUM: We were informed by [facility] that they would not accept the transfer of the pt without the evacuation of pericardial effusion. The pt was expeditiously evaluate and preop-ed for pericardial window which was undertaken emergently in the OR at night. I have discussed risks, benefits, alternatives, and including possibility of with the pt and his who accepted surgery without reservation. Objective - Vital Signs/Intake and Output Vital Signs (last 24 hours): Temp Pulse Resp BP Pulse Ox 99.1 F 102 H 18 113/75 96 07/27/18 11:56 07/27/18 11:56 07/27/18 11:56 07/27/18 11:56 07/27/18 11:56 - Medications Medications: Current Medications Albuterol/Ipratropium (Duoneb 3 Mg/0.5 Mg (3 Ml) Ud) 3 ml INH RQ6 PRN PRN Reason: Shortness of Breath Zolpidem Tartrate (Ambien) 5 mg PO HS PRN PRN Reason: Sleep - Labs Labs: 07/27/18 04:31 07/27/18 04:31 PT 14.3 Seconds (9.8-13.1) H 07/26/18 14:40 INR 1.3 07/26/18 14:40 APTT 32.8 Seconds (25.6-37.1) 07/26/18 14:40 Assessment and Plan - Assessment and Plan (Free Text) Assessment: Mediastinal mass. Pericardial effusion. Cardiac tamponade. Plan: Emergency pericardial window, subxyphoid.
[2018-07-27] MEDS ORDERED: Sodium Chloride 0.9% 1,000 ML IV SCH ×2 (16:00)
[2018-07-27 16:04] LABS: URIC ACID 8.9 mg/Dl (3.5-8.5)
--- NOTE | 2018-07-27 17:13 | CP.CCUPN ---
CCU Subjective - Physician Review Subjective (Free Text): 27M with no known pre-existing medial disease, presents with chest discomfort, syncopal episode, had underwent partial w/u as an outpatient, missed getting a CT Chest study, done in ER which showed, a anterior mediastinal mass and a large pericardial effusion, ECHO showed evidence of cardiac tamponade already; admitted to [address] [place] [address] overnight. Today, plans to transfer to [facility] noted, but they requested pericardial fluid drainage first. Patient to be transferred to the ICU for monitoring in the interim. He does not appear distressed, denies any recurrent chest discomfort, dyspnea at bed rest, nor dizziness. Other vitals and I/O's reviewed. No fever spikes last 24H. BP 150/102, HR now 105 in sinus, was 75 this AM at 7AM, SPo2 99% on RA, RR 20. ROS: No other pertinent negs or positives on 10+ system review. PMSFH: All other Nursing and physician documentation reviewed to date; no new pertinent info noted relevant to current medical problems. EXAM- HEENT: no icterus, no gaze preference, Pupils 3 mm and reactive NECK: No JVD visible due to obese neck, supple, carotids equal upstroke bilat/no bruit CHEST: decreased BS at the bases, no wheezes audible HEART: regular, distant, tachy S1S2, no rubs, soft 1/6 apical systolic murmur ABD: softly and nontender, no tympany, no guarding, no organomegaly, BS hypoactive. EXT: no LE edema, no calf tenderness or palpable cords, distal pulses intact and symmetrical. NEURO: moves all extremities spontaneously. SKIN: no rashes, warm and dry LABS: WBC= 4.6 HGB= 11.6 PLTs= 322K INR 1.3 on admission, PTT normal Na= 141 K= 4.1 XV=326 HCO3= 25 BUN/Cr= 11/1.0 BS= [address] Chest reviewed, chest bilingual nanny film shows cardiomegaly and air bronchograms in the bilateral perihilar regions. (my interp). As quoted from official report: MEDIASTINUM:: There is a large heterogeneously enhancing mass with hypoenhancing areas in the anterior mediastinum. The mass encases the origin of the great vessels with posterior displacement of the aorta and heart. There is resultant severe narrowing of the right main pulmonary artery and left pulmonary vein. There is also mass effect on the trachea and carlos alberto. EKG: admission study shows sinus tachy at 109/min, + low voltage in all leads (my interp). IMPRESSION / MAJOR PROBLEMS NOW: 1. Acute Pericardial Tamponade 2 mediastinal mass, etiology- r/o lymphoma, infection 2. Anemia of unknown duration and etiology, with mild MC/HC indices. PLAN: 1. Urgent surgical evaluation (done) and needs pericardiocentesis. 2. IV fluid volume expansion and hydration. 3. Heme-Onc evaluation. 4. Transfer to ICU for interim pre-op monitoring and mgmt. 5. Does not appear to need airway maintenance nor MV support at this point in time, unless he becomes hypoxemic after IV fluid administration. 6. Consider further w/u ( HIV, r/o TB, MARIO, RF, etc.) in the interim in addition to pericardial fluid analysis.
[2018-07-27] MEDS ORDERED: Lidocaine 1% Inj (20ml) ONE (17:57)
[2018-07-27] MEDS ORDERED: Bupivacaine 0.5% Inj(30mL) ONE (17:57)
[2018-07-27] MEDS ORDERED: ePHEDrine 50 mg/ml Inj ONE (18:03)
[2018-07-27] MEDS ORDERED: Propofol 10 mg/ml Inj (20 ML) ONE (18:03)
[2018-07-27] MEDS ORDERED: Succinylcholine 200 mg/10 ml Inj IV ONE (18:03)
[2018-07-27] MEDS ORDERED: Gentamicin 80 mg/2mL Inj. ONE (18:09)
[2018-07-27] MEDS ORDERED: Lactated Ringer's 1,000 ML IV ONE ×2 (18:40→20:27)
[2018-07-27] MEDS ORDERED: Rocuronium 10 mg/ml (5 ml) ONE (19:09)
[2018-07-27] MEDS ORDERED: Neostigmine 1:1000 (1 mg/ml) Inj ONE (20:27)
[2018-07-27] MEDS ORDERED: Bacitracin Ointment 30 GM TUBE ONE (20:36)
[2018-07-27] MEDS ORDERED: Bacitracin OINT 15GM TOP ONE (20:46)
[2018-07-27] MEDS ORDERED: Bupivacaine 0.5% Inj(30mL) IJ ONE (20:58)
[2018-07-27] MEDS ORDERED: HYDROmorphone 0.5 mg/0.5 ml ISec IVP PRN (21:18)
--- NOTE | 2018-07-27 21:25 | PCM.SURG1 ---
Surgeon's Initial Post Op Note - Surgeon's Notes Surgeon: Dr. He Precision Devices Inspector/Tester: brett White PGY3, Radha PGY1 Type of Anesthesia: General Endo, Local Anesthesia Administered By: Xiao Pre-Operative Diagnosis: Pericardial effusion Operative Findings: pericardial effusion 300cc straw color , Pericardial /mediastinal mass [id number] Post-Operative Diagnosis: Pericardial effusion, pericardial/ mediastinal mass Operation Performed: pericardial window, biopsy of pericardial/ Mediastinal mass, chest tubes in pericardium Specimen/Specimens Removed: Pericardium, pericardial/mediastinal mass, pericardial fluids. Estimated Blood Loss: EBL {In ML}: 50 Blood Products Given: N/A Drains Used: Chest Tubes Post-Op Condition: Fair Date of Surgery/Procedure: 07/27/18 Time of Surgery/Procedure: :
[2018-07-27] MEDS ORDERED: Lactated Ringer's 1,000 ML IV PRN (21:43)
[2018-07-27] MEDS ORDERED: Lactated Ringer's 1,000 ML IV SCH (21:45)
[2018-07-27] MEDS: HYDROmorphone 0.5 mg/0.5 ml ISec IVP PRN ×3 (21:55→22:30)
[2018-07-27 21:58] LABS: BODY FLUID TYPE PERICARDIAL
[2018-07-27 22:19] LABS: BF GROSS APPEARANCE BLOODY (CLEAR)
[2018-07-27 22:27] LABS: AMYLASE,BODY FLUID < 30 mg/dL (NONE ESTABLISHED); GLUCOSE,BODY FLUID 81 mg/dL (NONE ESTABLISHED); TOTAL PROTEIN,BODY FLUID 5.5 g/dL (NONE ESTABLISHED)
[2018-07-27 22:41] LABS: BODY FLUID MONO/MACROPHAGE 13 % (0-0); BODY FLUID TOTAL COUNT 100 (0-0)
[2018-07-27] MEDS ORDERED: Trimethobenzamide 200 mg/2 mL Inj IM PRN (22:42)
[2018-07-28] MEDS ORDERED: Sodium Chloride 0.9% 1,000 ML IV SCH ×3 (00:19→06:30)
[2018-07-28] MEDS ORDERED: Lactated Ringer's 1,000 ML IV SCH ×2 (02:30→16:45)
[2018-07-28 04:06] LABS: BASO % 0.5 % (0.0-2.0); EOS % 0.2 % (0.0-4.0); HEMOGLOBIN 11.7 g/dL (12.0-18.0); LYMPH # 0.6 K/uL (1.0-4.3); LYMPH % 7.3 % (20.0-40.0); MEAN CELL VOLUME 79.8 fl (80.0-94.0); MEAN CORPUSCULAR HEMOGLOBIN 26.3 pg (27.0-31.0); MEAN PLATELET VOLUME 8.6 fl (7.2-11.7); MONO # 0.7 K/uL (0.0-0.8); MONO % 7.7 % (0.0-10.0); NEUT # 7.2 K/uL (1.8-7.0); NEUT % 84.3 % (50.0-75.0); PLATELET COUNT 353 K/uL (130-400); RBC 4.43 Mil/uL (4.40-5.90); RED CELL DISTRIBUTION WIDTH 14.5 % (11.5-14.5); WHITE BLOOD COUNT 8.6 K/uL (4.8-10.8)
[2018-07-28 05:57] LABS: BANDS 1 % (0-2); HYPOCHROMIC SLIGHT; LYMPHOCYTE 5 % (20-50); MONOCYTE 8 % (0-10); NEUTROPHIL 85 % (42-75); PLATELET ESTIMATE NORMAL (NORMAL); REACTIVE LYMPHOCYTES 1 % (0-0); TOTAL CELLS COUNTED 100
[2018-07-28 05:58] LABS: BURR CELLS SLIGHT; OVALOCYTES SLIGHT
--- NOTE | 2018-07-28 07:59 | CP.PCM.PN ---
Subjective - Date & Time of Evaluation Date of Evaluation: 07/28/18 Time of Evaluation: 07:05 - Subjective Subjective: CT surgery progress note for Dr. He Patient jamar and examined this morning at bedside. NAEO per nursing. Patient is resting comfortably, pain well controlled, no SOB, indicates incision pain and chest soreness. Tolerating diet well denies f/c, n/v. Right chest tube 250 left chest tube 200. IS 500 Objective - Vital Signs/Intake and Output Vital Signs (last 24 hours): Temp Pulse Resp BP Pulse Ox 98.5 F 87 12 102/52 L 99 07/28/18 04:00 07/28/18 06:00 07/28/18 06:00 07/28/18 06:00 07/28/18 06:00 Intake and Output: 07/28/18 07/28/18 06:59 18:59 Intake Total 1680 Output Total 1290 Balance 390 - Medications Medications: Current Medications Albuterol/Ipratropium (Duoneb 3 Mg/0.5 Mg (3 Ml) Ud) 3 ml INH RQ6 PRN PRN Reason: Shortness of Breath Docusate Sodium (Colace) 100 mg PO BID COUNT [facility]CLUDES [facility] Hydromorphone HCl (Dilaudid) 0.5 mg IVP Q4 PRN PRN Reason: Pain, moderate (4-7) Sodium Chloride (Sodium Chloride 0.9%) 1,000 mls @ 999 mls/hr IV .Q1H1M [facility]CLUDES [facility] Stop: 07/28/18 15:55 Last Admin: 07/27/18 17:28 Dose: 999 mls/hr Lactated Ringer's (Lactated Ringer's) 1,000 mls @ 100 mls/hr IV .Q10H COUNT [facility]CLUDES [facility] Last Admin: 07/28/18 06:57 Dose: 100 mls/hr Lactated Ringer's (Lactated Ringer's) 1,000 mls @ 100 mls/hr IV .Q10H PRN PRN Reason: Hypotension Lactated Ringer's (Lactated Ringer's) 1,000 mls @ 999 mls/hr IV .Q1H1M COUNT [facility]CLUDES [facility] Last Admin: 07/28/18 03:20 Dose: 999 mls/hr Ketorolac Tromethamine (Toradol) 30 mg IVP Q6 PRN PRN Reason: Pain, severe (8-10) Oxycodone/Acetaminophen (Percocet 5/325 Mg Tab) 2 tab PO Q4 PRN PRN Reason: Pain, Mild (1-3) Stop: 07/30/18 21:19 Trimethobenzamide HCl (Tigan) 200 mg IM ONCE PRN PRN Reason: Nausea/Vomiting Zolpidem Tartrate (Ambien) 5 mg PO HS PRN PRN Reason: Sleep - Labs Labs: 07/28/18 03:30 07/27/18 04:31 PT 14.3 Seconds (9.8-13.1) H 07/26/18 14:40 INR 1.3 07/26/18 14:40 APTT 32.8 Seconds (25.6-37.1) 07/26/18 14:40 - Constitutional Appears: Well, Non-toxic, No Acute Distress - Head Exam Head Exam: ATRAUMATIC, NORMOCEPHALIC - Eye Exam Eye Exam: EOMI - ENT Exam ENT Exam: Mucous Membranes Moist - Respiratory Exam Respiratory Exam: Chest Wall Tenderness (2/2 surgical incision and manipulation), NORMAL BREATHING PATTERN. absent: Accessory Muscle Use, Respiratory Distress - Cardiovascular Exam Cardiovascular Exam: Tachycardia (intermittent to 115 max), REGULAR RHYTHM - GI/Abdominal Exam GI & Abdominal Exam: Soft. absent: Distended, Guarding, Tenderness - Extremities Exam Extremities Exam: absent: Calf Tenderness, Pedal Edema - Neurological Exam Neurological Exam: Alert, Awake, Oriented x3 - Psychiatric Exam Psychiatric exam: Normal Affect, Normal Mood - Skin Skin Exam: Dry, Intact, Normal Color, Warm Additional comments: dressings in place CDI no strikethrough or drainage Assessment and Plan - Assessment and Plan (Free Text) Assessment: 27 yr old male with anterior mediastinal mass and percardial effusion s/p pericardial window procedure POD 1 Plan: continue close cardiac monitoring continue to monitor chest tube output f/u results of biopsy and fluid cytology/cx daily CXR chest tubes to low continuous suction will d/w Dr. Neri Ventura, PGY 1
--- NOTE | 2018-07-28 09:11 | CP.CCUPN ---
CCU Subjective - Physician Review Subjective (Free Text): Underwent urgent pericardiocentesis yesterday evening, sitting up in bed, eating breakfast, no distress, feels well except for minor incisional discomfort, no fevers overnight, denies any SOB, dizziness, nausea at bed rest. Bloody/serosang pericardial fluid noted. Other vitals and I/O's reviewed. No fever spikes last 24H. SBP 118, HR 73 sinus, SPo2 100% on RA, RR 17. ROS: No other pertinent negs or positives on 10+ system review. PMSFH: All other Nursing and physician documentation reviewed to date; no new pertinent info noted relevant to current medical problems. EXAM- HEENT: no icterus, no gaze preference, Pupils 3 mm and reactive NECK: No JVD visible due to obese neck, supple, carotids equal upstroke bilat/no bruit CHEST: decreased BS at the bases, no wheezes audible, midchest dressing intact with drain. HEART: regular, distant, tachy S1S2, no rubs, soft 1/6 apical systolic murmur ABD: softly and nontender, no tympany, no guarding, no organomegaly, BS hypoactive. EXT: no LE edema, no calf tenderness or palpable cords, distal pulses intact and symmetrical. NEURO: moves all extremities spontaneously. SKIN: no rashes, warm and dry LABS: WBC= 8.6 HGB= 11.7 PLTs= 353K Na= 14 K= 4.1 RB=245 HCO3= 25 BUN/Cr= 11/1.0 BS= 90 CXR: decreased heart size compared to CT Chest accounting instructor film. IMPRESSION / MAJOR PROBLEMS NOW: 1. s./p Pericardial Window for Acute Pericardial Tamponade 2 mediastinal mass, etiology- r/o lymphoma, infection 2. Anemia of unknown duration and etiology, with mild MC/HC indices. PLAN: 1. Stable post-op status. 2. Await Bx results, Heme-Onc eval. 3. Watch serial Hgb levels.
[2018-07-28] MEDS: Oxycodone/Acetaminophen 5/325 mg Tab PO PRN ×2 (09:23→14:15)
--- NOTE | 2018-07-28 12:31 | RAD ---
Date of service: 07/27/2018 PROCEDURE: CHEST RADIOGRAPH, 1 VIEW HISTORY: chest tubes in pacu COMPARISON: None available. FINDINGS: LUNGS: Clear. PLEURA: Two chest tubes identified in the pleural space. No visible pneumothorax. Persistent wide mediastinum related to massive tumor burden. CARDIOVASCULAR: No aortic atherosclerotic calcification present. Normal. OSSEOUS STRUCTURES: No significant abnormalities. VISUALIZED UPPER ABDOMEN: Normal. OTHER FINDINGS: None. IMPRESSION: Satisfactory location, appearance of chest tubes in the pleural spaces bilaterally. Stable superior mediastinal mass compared to recent CT scan.
--- NOTE | 2018-07-28 12:46 | RAD ---
Date of service: 07/28/2018 PROCEDURE: CHEST RADIOGRAPH, 1 VIEW HISTORY: Daily chest tube confirmation COMPARISON: July 27, 2018. FINDINGS: LUNGS: Clear. PLEURA: Confirmation of chest tubes in the pleural/pericardial spaces bilaterally. No visible pneumothorax. CARDIOVASCULAR: No aortic atherosclerotic calcification present. Normal. OSSEOUS STRUCTURES: No significant abnormalities. VISUALIZED UPPER ABDOMEN: Normal. OTHER FINDINGS: Stable superior mediastinal mass. IMPRESSION: No acute interval changes. Chest tubes documented bilaterally. The overall position orientation suggests that rather than residing in the pleural space, the chest tubes are in the pericardium.
--- NOTE | 2018-07-28 13:17 | CP.PCM.PN ---
Subjective - Date & Time of Evaluation Date of Evaluation: 07/28/18 Time of Evaluation: 13:15 - Subjective Subjective: Surgery: Dr. He [facility] [place] has accepted pt for transfer and has bed available for today. Case was d/w Dr. He who would prefer for pt to be transferred tomorrow. Objective - Vital Signs/Intake and Output Vital Signs (last 24 hours): Temp Pulse Resp BP Pulse Ox 98.3 F 97 H 20 127/61 95 07/28/18 12:00 07/28/18 12:00 07/28/18 12:00 07/28/18 12:00 07/28/18 12:00 Intake and Output: 07/28/18 07/28/18 06:59 18:59 Intake Total 1680 Output Total 1290 Balance 390 - Medications Medications: Current Medications Albuterol/Ipratropium (Duoneb 3 Mg/0.5 Mg (3 Ml) Ud) 3 ml INH RQ6 PRN PRN Reason: Shortness of Breath Last Admin: 07/28/18 09:27 Dose: 3 ml Docusate Sodium (Colace) 100 mg PO BID [facility] Hydromorphone HCl (Dilaudid) 0.5 mg IVP Q4 PRN PRN Reason: Pain, moderate (4-7) Sodium Chloride (Sodium Chloride 0.9%) 1,000 mls @ 999 mls/hr IV .Q1H1M [facility] Stop: 07/28/18 15:55 Last Admin: 07/27/18 17:28 Dose: 999 mls/hr Lactated Ringer's (Lactated Ringer's) 1,000 mls @ 100 mls/hr IV .Q10H [facility] Last Admin: 07/28/18 06:57 Dose: 100 mls/hr Lactated Ringer's (Lactated Ringer's) 1,000 mls @ 100 mls/hr IV .Q10H PRN PRN Reason: Hypotension Lactated Ringer's (Lactated Ringer's) 1,000 mls @ 999 mls/hr IV .Q1H1M [facility] Last Admin: 07/28/18 03:20 Dose: 999 mls/hr Ketorolac Tromethamine (Toradol) 30 mg IVP Q6 PRN PRN Reason: Pain, severe (8-10) Oxycodone/Acetaminophen (Percocet 5/325 Mg Tab) 2 tab PO Q4 PRN PRN Reason: Pain, Mild (1-3) Stop: 07/30/18 21:19 Last Admin: 07/28/18 09:23 Dose: 2 tab Trimethobenzamide HCl (Tigan) 200 mg IM ONCE PRN PRN Reason: Nausea/Vomiting Zolpidem Tartrate (Ambien) 5 mg PO HS PRN PRN Reason: Sleep - Labs Labs: 07/28/18 03:30 07/27/18 04:31 PT 14.3 Seconds (9.8-13.1) H 07/26/18 14:40 INR 1.3 07/26/18 14:40 APTT 32.8 Seconds (25.6-37.1) 07/26/18 14:40
--- NOTE | 2018-07-28 15:24 | CP.PCM.PN ---
Subjective - Subjective Subjective: s/p Pericardial window, no AD , no C/P, no SOB Objective - Vital Signs/Intake and Output Vital Signs (last 24 hours): Temp Pulse Resp BP Pulse Ox 98.3 F 93 H 16 121/51 L 98 07/28/18 12:00 07/28/18 14:00 07/28/18 14:00 07/28/18 14:00 07/28/18 14:00 Intake and Output: 07/28/18 07/28/18 06:59 18:59 Intake Total 1680 Output Total 1290 600 Balance 390 -600 - Medications Medications: Current Medications Albuterol/Ipratropium (Duoneb 3 Mg/0.5 Mg (3 Ml) Ud) 3 ml INH RQ6 PRN PRN Reason: Shortness of Breath Last Admin: 07/28/18 09:27 Dose: 3 ml Docusate Sodium (Colace) 100 mg PO BID [facility] Last Admin: 07/28/18 14:17 Dose: 100 mg Hydromorphone HCl (Dilaudid) 0.5 mg IVP Q4 PRN PRN Reason: Pain, moderate (4-7) Sodium Chloride (Sodium Chloride 0.9%) 1,000 mls @ 999 mls/hr IV .Q1H1M [facility] Stop: 07/28/18 15:55 Last Admin: 07/27/18 17:28 Dose: 999 mls/hr Lactated Ringer's (Lactated Ringer's) 1,000 mls @ 100 mls/hr IV .Q10H [facility] Last Admin: 07/28/18 06:57 Dose: 100 mls/hr Lactated Ringer's (Lactated Ringer's) 1,000 mls @ 100 mls/hr IV .Q10H PRN PRN Reason: Hypotension Lactated Ringer's (Lactated Ringer's) 1,000 mls @ 999 mls/hr IV .Q1H1M [facility] Last Admin: 07/28/18 03:20 Dose: 999 mls/hr Ketorolac Tromethamine (Toradol) 30 mg IVP Q6 PRN PRN Reason: Pain, severe (8-10) Oxycodone/Acetaminophen (Percocet 5/325 Mg Tab) 2 tab PO Q4 PRN PRN Reason: Pain, Mild (1-3) Stop: 07/30/18 21:19 Last Admin: 07/28/18 14:15 Dose: 2 tab Phenol/Menthol (Phenaseptic 1.4% Throat [place]) 1 spry MT Q2 PRN PRN Reason: Pain, Mild (1-3) Trimethobenzamide HCl (Tigan) 200 mg IM ONCE PRN PRN Reason: Nausea/Vomiting Zolpidem Tartrate (Ambien) 5 mg PO HS PRN PRN Reason: Sleep - Labs Labs: 07/28/18 03:30 07/27/18 04:31 PT 14.3 Seconds (9.8-13.1) H 07/26/18 14:40 INR 1.3 07/26/18 14:40 APTT 32.8 Seconds (25.6-37.1) 07/26/18 14:40 - Constitutional Appears: No Acute Distress - Head Exam Head Exam: NORMAL INSPECTION - Eye Exam Eye Exam: PERRL - ENT Exam ENT Exam: Normal Exam - Neck Exam Neck Exam: Normal Inspection - Respiratory Exam Respiratory Exam: Clear to Ausculation Bilateral - Cardiovascular Exam Cardiovascular Exam: REGULAR RHYTHM Additional comments: Chest tubes in place - GI/Abdominal Exam GI & Abdominal Exam: Soft, Normal Bowel Sounds - Rectal Exam Rectal Exam: NORMAL INSPECTION - Extremities Exam Extremities Exam: Normal Inspection - Back Exam Back Exam: NORMAL INSPECTION - Neurological Exam Neurological Exam: Alert, Oriented x3. absent: Motor Sensory Deficit - Psychiatric Exam Psychiatric exam: Normal Affect, Normal Mood - Skin Skin Exam: Warm Assessment and Plan (1) Mediastinal mass Status: Acute (2) Pericardial effusion Status: Resolved (3) Pericardial tamponade Status: Resolved (4) S/P pericardial window creation Assessment & Plan: Mediastinal mass Bx Status: Acute - Assessment and Plan (Free Text) Plan: transfer to [facility] tomorrow as per Thoracic surgeon recommendation, continue DuoNeb, Pain medication
[2018-07-28] MEDS: Phenol 1.4% Throat Spray MT PRN ×3 (16:30→21:41)
[2018-07-29 06:25] LABS: BASO % 0.7 % (0.0-2.0); EOS # 0.1 K/uL (0.0-0.7); EOS % 1.1 % (0.0-4.0); HEMOGLOBIN 11.5 g/dL (12.0-18.0); LYMPH # 0.6 K/uL (1.0-4.3); MEAN CELL VOLUME 79.9 fl (80.0-94.0); MEAN CORPUSCULAR HEMOGLOBIN 27.1 pg (27.0-31.0); MEAN CORPUSCULAR HGB CONC 33.9 g/dL (33.0-37.0); MONO # 0.6 K/uL (0.0-0.8); MONO % 9.7 % (0.0-10.0); NEUT % 79.5 % (50.0-75.0); RBC 4.25 Mil/uL (4.40-5.90); RED CELL DISTRIBUTION WIDTH 14.1 % (11.5-14.5); WHITE BLOOD COUNT 6.3 K/uL (4.8-10.8)
[2018-07-29 06:47] LABS: ALB/GLOB RATIO 1.2 (1.0-2.1); ALBUMIN 3.8 g/dL (3.5-5.0); ALT/SGPT 24 U/L (21-72); AST/SGOT 27 U/L (17-59); BLOOD UREA NITROGEN 6 mg/dl (9-20); CALCIUM 9.2 mg/dL (8.4-10.2); GFR NON-AFRICAN AMERICAN > 60
--- NOTE | 2018-07-29 07:31 | CP.PCM.PN ---
<Stephanie Ventura - Last Filed: 07/29/18 08:14> Subjective - Date & Time of Evaluation Date of Evaluation: 07/29/18 Time of Evaluation: 06:50 - Subjective Subjective: CT surgery: Dr. He Patient seen and examined this am at bedside. NAEO per nursing. pain well controlled with toradol overnight. left CT output 60 overnight Right chest tube 70 overnight. IS 500-850 Objective - Vital Signs/Intake and Output Vital Signs (last 24 hours): Temp Pulse Resp BP Pulse Ox 97.7 F 102 H 10 L 147/90 97 07/29/18 04:00 07/29/18 05:00 07/29/18 05:00 07/29/18 05:00 07/29/18 05:00 Intake and Output: 07/29/18 07/29/18 06:59 18:59 Intake Total 1190 Output Total 130 Balance 1060 - Medications Medications: Current Medications Albuterol/Ipratropium (Duoneb 3 Mg/0.5 Mg (3 Ml) Ud) 3 ml INH RQ6 PRN PRN Reason: Shortness of Breath Last Admin: 07/28/18 09:27 Dose: 3 ml Docusate Sodium (Colace) 100 mg PO BID [facility] Last Admin: 07/28/18 18:45 Dose: 100 mg Hydromorphone HCl (Dilaudid) 0.5 mg IVP Q4 PRN PRN Reason: Pain, moderate (4-7) Lactated Ringer's (Lactated Ringer's) 1,000 mls @ 75 mls/hr IV .[id number] [facility] Last Admin: 07/28/18 16:51 Dose: 75 mls/hr Ketorolac Tromethamine (Toradol) 30 mg IVP Q6 PRN PRN Reason: Pain, severe (8-10) Last Admin: 07/29/18 05:30 Dose: 30 mg Oxycodone/Acetaminophen (Percocet 5/325 Mg Tab) 2 tab PO Q4 PRN PRN Reason: Pain, Mild (1-3) Stop: 07/30/18 21:19 Last Admin: 07/28/18 14:15 Dose: 2 tab Phenol/Menthol (Phenaseptic 1.4% Throat [place]) 1 spry MT Q2 PRN PRN Reason: Pain, Mild (1-3) Last Admin: 07/28/18 21:41 Dose: 1 spray Trimethobenzamide HCl (Tigan) 200 mg IM ONCE PRN PRN Reason: Nausea/Vomiting Zolpidem Tartrate (Ambien) 5 mg PO HS PRN PRN Reason: Sleep Last Admin: 07/28/18 22:55 Dose: 5 mg - Labs Labs: 07/29/18 04:20 07/29/18 04:20 PT 14.3 Seconds (9.8-13.1) H 07/26/18 14:40 INR 1.3 07/26/18 14:40 APTT 32.8 Seconds (25.6-37.1) 07/26/18 14:40 - Constitutional Appears: Well, Non-toxic, No Acute Distress - Head Exam Head Exam: ATRAUMATIC, NORMOCEPHALIC - Eye Exam Eye Exam: EOMI - ENT Exam ENT Exam: Mucous Membranes Moist - Respiratory Exam Respiratory Exam: NORMAL BREATHING PATTERN - Cardiovascular Exam Cardiovascular Exam: Tachycardia (110), REGULAR RHYTHM - GI/Abdominal Exam GI & Abdominal Exam: Soft. absent: Distended, Guarding, Tenderness - Extremities Exam Extremities Exam: absent: Calf Tenderness, Pedal Edema - Neurological Exam Neurological Exam: Alert, Awake, Oriented x3 - Psychiatric Exam Psychiatric exam: Normal Affect, Normal Mood - Skin Skin Exam: Dry, Intact, Normal Color, Warm Additional comments: chest tube dressings changed at bedside, insertion sites cdi no surrounding erythema, operative dressing cdi Assessment and Plan - Assessment and Plan (Free Text) Assessment: 27 yr old male with anterior mediastinal mass and pericardial effusion s/p pericardial window POD 2 Plan: likely transfer to [facility] today f/u biopsy pathology f/u fluid cytology encourage OOB and IS use will d/w Dr. Neri Ventura, PGY 1 <Jeramie He - Last Filed: 08/05/18 13:58> Objective - Vital Signs/Intake and Output Vital Signs (last 24 hours): Temp Pulse Resp BP Pulse Ox 98.9 F 108 H 18 139/81 96 07/29/18 12:00 07/29/18 12:00 07/29/18 12:00 07/29/18 12:00 08/02/18 05:38 - Labs Labs: 07/29/18 04:20 07/29/18 04:20 PT 14.3 Seconds (9.8-13.1) H 07/26/18 14:40 INR 1.3 07/26/18 14:40 APTT 32.8 Seconds (25.6-37.1) 07/26/18 14:40 Attending/Attestation - Attestation I have personally seen and examined this patient.: Yes I have fully participated in the care of the patient.: Yes I have reviewed all pertinent clinical information, including history, physical exam and plan: Yes
[2018-07-29] MEDS: Phenol 1.4% Throat Spray MT PRN ×2 (09:55→12:55)
--- NOTE | 2018-07-29 11:11 | RAD ---
Date of service: 07/29/2018 HISTORY: chest tubes COMPARISON: Frontal chest radiograph 07/28/2018. Also, chest CT with contrast 07/26/2018. FINDINGS: LUNGS: No active pulmonary disease. PLEURA: No pleural effusion or pneumothorax bilaterally. CARDIOVASCULAR: No aortic atherosclerotic calcification present. Widened mediastinum reiterated, apparently on the basis of marked lymphadenopathy and also significant pericardial effusion. Apparent tubing (2) overlying the plane of the heart in the periphery likely in pericardial space. The appearance is unchanged in the interval. No pulmonary vascular congestion. OSSEOUS STRUCTURES: No significant abnormalities. VISUALIZED UPPER ABDOMEN: Normal. OTHER FINDINGS: None. IMPRESSION: Stable, widened mediastinum reiterated on the basis of lymphadenopathy and pericardial effusion. Two tubes in the chest are unchanged in position, presumably in the pericardial space.
--- NOTE | 2018-07-29 12:04 | CP.PCM.PN ---
Subjective - Date & Time of Evaluation Date of Evaluation: 07/29/18 Time of Evaluation: 09:15 - Subjective Subjective: Patient seen in the intensive care unit. He has been out of bed for a couple of hours and breathes comfortably. The patient was afebrile with a heart rate of 84 bpm regular and a blood pressure of 130/70 mmHg. His extremities were warm and his nailbeds were pink. There was no central or peripheral cyanosis. His labs were reviewed. The patient is stable from cardiovascular point of few and no intervention is required at this juncture. Objective - Vital Signs/Intake and Output Vital Signs (last 24 hours): Temp Pulse Resp BP Pulse Ox 98.5 F 100 H 19 148/77 93 L 07/29/18 08:00 07/29/18 08:00 07/29/18 08:00 07/29/18 08:00 07/29/18 08:00 Intake and Output: 07/29/18 07/29/18 06:59 18:59 Intake Total 1190 100 Output Total 130 Balance 1060 100 - Medications Medications: Current Medications Albuterol/Ipratropium (Duoneb 3 Mg/0.5 Mg (3 Ml) Ud) 3 ml INH RQ6 PRN PRN Reason: Shortness of Breath Last Admin: 07/28/18 09:27 Dose: 3 ml Docusate Sodium (Colace) 100 mg PO BID [facility] Last Admin: 07/29/18 09:54 Dose: 100 mg Hydromorphone HCl (Dilaudid) 0.5 mg IVP Q4 PRN PRN Reason: Pain, moderate (4-7) Lactated Ringer's (Lactated Ringer's) 1,000 mls @ 75 mls/hr IV .[id number] [facility] Last Admin: 07/28/18 16:51 Dose: 75 mls/hr Ketorolac Tromethamine (Toradol) 30 mg IVP Q6 PRN PRN Reason: Pain, severe (8-10) Last Admin: 07/29/18 05:30 Dose: 30 mg Oxycodone/Acetaminophen (Percocet 5/325 Mg Tab) 2 tab PO Q4 PRN PRN Reason: Pain, Mild (1-3) Stop: 07/30/18 21:19 Last Admin: 07/28/18 14:15 Dose: 2 tab Phenol/Menthol (Phenaseptic 1.4% Throat [place]) 1 spry MT Q2 PRN PRN Reason: Pain, Mild (1-3) Last Admin: 07/29/18 09:55 Dose: 1 spray Trimethobenzamide HCl (Tigan) 200 mg IM ONCE PRN PRN Reason: Nausea/Vomiting Zolpidem Tartrate (Ambien) 5 mg PO HS PRN PRN Reason: Sleep Last Admin: 07/28/18 22:55 Dose: 5 mg - Labs Labs: 07/29/18 04:20 07/29/18 04:20 PT 14.3 Seconds (9.8-13.1) H 07/26/18 14:40 INR 1.3 07/26/18 14:40 APTT 32.8 Seconds (25.6-37.1) 07/26/18 14:40
[2018-07-29 12:33] VITALS: BP 139/81; PULSE 108; RESP 18; TEMP 98.9; O2SAT 96
[2018-07-29] MEDS: Oxycodone/Acetaminophen 5/325 mg Tab PO PRN (12:52)
--- NOTE | 2018-07-29 13:10 | CP.PCM.PN ---
Subjective - Date & Time of Evaluation Date of Evaluation: 07/29/18 Time of Evaluation: 13:08 - Subjective Subjective: Pt s/e, Clinically stable. To be transferred to [facility] via ambulance with ACLS capability at the request of pt and his . Objective - Vital Signs/Intake and Output Vital Signs (last 24 hours): Temp Pulse Resp BP Pulse Ox 98.9 F 108 H 18 139/81 96 07/29/18 12:00 07/29/18 12:00 07/29/18 12:00 07/29/18 12:00 07/29/18 12:00 Intake and Output: 07/29/18 07/29/18 06:59 18:59 Intake Total 1190 100 Output Total 130 Balance 1060 100 - Medications Medications: Current Medications Albuterol/Ipratropium (Duoneb 3 Mg/0.5 Mg (3 Ml) Ud) 3 ml INH RQ6 PRN PRN Reason: Shortness of Breath Last Admin: 07/28/18 09:27 Dose: 3 ml Docusate Sodium (Colace) 100 mg PO BID [facility] Last Admin: 07/29/18 09:54 Dose: 100 mg Hydromorphone HCl (Dilaudid) 0.5 mg IVP Q4 PRN PRN Reason: Pain, moderate (4-7) Lactated Ringer's (Lactated Ringer's) 1,000 mls @ 75 mls/hr IV .[id number] [facility] Last Admin: 07/28/18 16:51 Dose: 75 mls/hr Ketorolac Tromethamine (Toradol) 30 mg IVP Q6 PRN PRN Reason: Pain, severe (8-10) Last Admin: 07/29/18 05:30 Dose: 30 mg Oxycodone/Acetaminophen (Percocet 5/325 Mg Tab) 2 tab PO Q4 PRN PRN Reason: Pain, Mild (1-3) Stop: 07/30/18 21:19 Last Admin: 07/29/18 12:52 Dose: 2 tab Phenol/Menthol (Phenaseptic 1.4% Throat [place]) 1 spry MT Q2 PRN PRN Reason: Pain, Mild (1-3) Last Admin: 07/29/18 12:55 Dose: 1 spray Trimethobenzamide HCl (Tigan) 200 mg IM ONCE PRN PRN Reason: Nausea/Vomiting Zolpidem Tartrate (Ambien) 5 mg PO HS PRN PRN Reason: Sleep Last Admin: 07/28/18 22:55 Dose: 5 mg - Labs Labs: 07/29/18 04:20 07/29/18 04:20 PT 14.3 Seconds (9.8-13.1) H 07/26/18 14:40 INR 1.3 07/26/18 14:40 APTT 32.8 Seconds (25.6-37.1) 07/26/18 14:40
--- NOTE | 2018-07-29 13:16 | CP.PCM.PN ---
Subjective - Subjective Subjective: no AD, no SOB, no Chest pain Objective - Vital Signs/Intake and Output Vital Signs (last 24 hours): Temp Pulse Resp BP Pulse Ox 98.9 F 108 H 18 139/81 96 07/29/18 12:00 07/29/18 12:00 07/29/18 12:00 07/29/18 12:00 07/29/18 12:00 Intake and Output: 07/29/18 07/29/18 06:59 18:59 Intake Total 1190 100 Output Total 130 Balance 1060 100 - Medications Medications: Current Medications Albuterol/Ipratropium (Duoneb 3 Mg/0.5 Mg (3 Ml) Ud) 3 ml INH RQ6 PRN PRN Reason: Shortness of Breath Last Admin: 07/28/18 09:27 Dose: 3 ml Docusate Sodium (Colace) 100 mg PO BID [facility] Last Admin: 07/29/18 09:54 Dose: 100 mg Hydromorphone HCl (Dilaudid) 0.5 mg IVP Q4 PRN PRN Reason: Pain, moderate (4-7) Lactated Ringer's (Lactated Ringer's) 1,000 mls @ 75 mls/hr IV .[id number] [facility] Last Admin: 07/28/18 16:51 Dose: 75 mls/hr Ketorolac Tromethamine (Toradol) 30 mg IVP Q6 PRN PRN Reason: Pain, severe (8-10) Last Admin: 07/29/18 05:30 Dose: 30 mg Oxycodone/Acetaminophen (Percocet 5/325 Mg Tab) 2 tab PO Q4 PRN PRN Reason: Pain, Mild (1-3) Stop: 07/30/18 21:19 Last Admin: 07/29/18 12:52 Dose: 2 tab Phenol/Menthol (Phenaseptic 1.4% Throat [place]) 1 spry MT Q2 PRN PRN Reason: Pain, Mild (1-3) Last Admin: 07/29/18 12:55 Dose: 1 spray Trimethobenzamide HCl (Tigan) 200 mg IM ONCE PRN PRN Reason: Nausea/Vomiting Zolpidem Tartrate (Ambien) 5 mg PO HS PRN PRN Reason: Sleep Last Admin: 07/28/18 22:55 Dose: 5 mg - Labs Labs: 07/29/18 04:20 07/29/18 04:20 PT 14.3 Seconds (9.8-13.1) H 07/26/18 14:40 INR 1.3 07/26/18 14:40 APTT 32.8 Seconds (25.6-37.1) 07/26/18 14:40 - Constitutional Appears: Younger Than Stated Age - Head Exam Head Exam: NORMAL INSPECTION - Eye Exam Eye Exam: PERRL - ENT Exam ENT Exam: Normal Exam - Respiratory Exam Respiratory Exam: Clear to Ausculation Bilateral - Cardiovascular Exam Cardiovascular Exam: REGULAR RHYTHM Additional comments: Chest tubes in place - GI/Abdominal Exam GI & Abdominal Exam: Soft, Normal Bowel Sounds - Extremities Exam Extremities Exam: Normal Inspection - Back Exam Back Exam: NORMAL INSPECTION - Neurological Exam Neurological Exam: Alert, CN II-XII Intact, Oriented x3. absent: Motor Sensory Deficit - Psychiatric Exam Psychiatric exam: Normal Affect - Skin Skin Exam: Warm Assessment and Plan (1) Mediastinal mass Status: Acute (2) Pericardial effusion Status: Resolved (3) Pericardial tamponade Status: Resolved (4) S/P pericardial window creation Assessment & Plan: Mediatinal mass Bx Status: Acute - Assessment and Plan (Free Text) Plan: s/p Pericardial window stable, Patient was cleared by Thoracic surgeon and Human Resources Clerk. Patient to be discharge via ambulance with ACLS capability to [facility], see inst/med MAR, Patient has an accepting Physician in this Faclity
--- NOTE | 2018-07-29 18:54 | CP.PCM.DIS ---
Provider - Provider Date of Admission: 07/26/18 17:05 Attending physician: Bashir Ahmadi MD Consults: General Surgery-Dr. He Ok/Onco-Dr. Marroquin Cardiology-Dr. Barillas Physician-Dr. Lovelace Time Spent in preparation of Discharge (in minutes): 35 Diagnosis - Discharge Diagnosis (1) Mediastinal mass Status: Acute Priority: High (2) Pericardial effusion Status: Resolved Priority: High (3) Pericardial tamponade Status: Resolved Priority: High (4) S/P pericardial window creation Status: Acute Hospital Course - Lab Results Lab Results: Micro Results 07/27/18 21:58 Other: Please Indicate Mycobacterial Culture - Preliminary 07/27/18 21:58 Pericardial Fluid Fungal Culture - Preliminary 07/27/18 21:50 Other: Please Indicate Gram Stain - Final 07/27/18 21:50 Other: Please Indicate Wound Culture - Preliminary NO GROWTH AFTER 24 HOURS 07/27/18 21:58 Pericardial Fluid Gram Stain - Final Most Recent Lab Values WBC 6.3 K/uL (4.8-10.8) 07/29/18 04:20 RBC 4.25 Mil/uL (4.40-5.90) L 07/29/18 04:20 Hgb 11.5 g/dL (12.0-18.0) L 07/29/18 04:20 Hct 33.9 % (35.0-51.0) L 07/29/18 04:20 MCV 79.9 fl (80.0-94.0) L 07/29/18 04:20 MCH 27.1 pg (27.0-31.0) 07/29/18 04:20 MCHC 33.9 g/dL (33.0-37.0) 07/29/18 04:20 RDW 14.1 % (11.5-14.5) 07/29/18 04:20 Plt Count 273 K/uL (130-400) 07/29/18 04:20 MPV 8.0 fl (7.2-11.7) 07/29/18 04:20 Neut % (Auto) 79.5 % (50.0-75.0) H 07/29/18 04:20 Lymph % (Auto) 9.0 % (20.0-40.0) L 07/29/18 04:20 [place] % (Auto) 9.7 % (0.0-10.0) 07/29/18 04:20 Eos % (Auto) 1.1 % (0.0-4.0) 07/29/18 04:20 Baso % (Auto) 0.7 % (0.0-2.0) 07/29/18 04:20 Neut # (Auto) 5.0 K/uL (1.8-7.0) 07/29/18 04:20 Lymph # (Auto) 0.6 K/uL (1.0-4.3) L 07/29/18 04:20 [place] # (Auto) 0.6 K/uL (0.0-0.8) 07/29/18 04:20 Eos # (Auto) 0.1 K/uL (0.0-0.7) 07/29/18 04:20 Baso # (Auto) 0.0 K/uL (0.0-0.2) 07/29/18 04:20 Neutrophils % (Manual) 85 % (42-75) H 07/28/18 03:30 Band Neutrophils % 1 % (0-2) 07/28/18 03:30 Lymphocytes % (Manual) 5 % (20-50) L 07/28/18 03:30 Reactive Lymphs % 1 % (0-0) H 07/28/18 03:30 Monocytes % (Manual) 8 % (0-10) 07/28/18 03:30 Platelet Estimate Normal (NORMAL) 07/28/18 03:30 Hypochromasia (manual) Slight 07/28/18 03:30 Ovalocytes Slight 07/28/18 03:30 [place] Cells Slight 07/28/18 03:30 PT 14.3 Seconds (9.8-13.1) H 07/26/18 14:40 INR 1.3 07/26/18 14:40 APTT 32.8 Seconds (25.6-37.1) 07/26/18 14:40 Sodium 138 mmol/l (132-148) 07/29/18 04:20 Potassium 4.1 MMOL/L (3.6-5.0) 07/29/18 04:20 Chloride 104 mmol/L (98-107) 07/29/18 04:20 Carbon Dioxide 25 mmol/L (22-30) 07/29/18 04:20 Anion Gap 13 (10-20) 07/29/18 04:20 BUN 6 mg/dl (9-20) L 07/29/18 04:20 Creatinine 0.8 mg/dl (0.8-1.5) 07/29/18 04:20 Est GFR ( Amer) > 60 07/29/18 04:20 Est GFR (Non-Af Amer) > 60 07/29/18 04:20 Random Glucose 94 mg/dL (75-110) 07/29/18 04:20 Uric Acid 8.9 mg/Dl (3.5-8.5) H 07/27/18 15:17 Calcium 9.2 mg/dL (8.4-10.2) 07/29/18 04:20 Phosphorus 3.2 mg/dl (2.5-4.5) 07/29/18 04:20 Magnesium 1.9 MG/DL (1.6-2.3) 07/29/18 04:20 Total Bilirubin 1.4 mg/dl (0.2-1.3) H 07/29/18 04:20 AST 27 U/L (17-59) 07/29/18 04:20 ALT 24 U/L (21-72) 07/29/18 04:20 Alkaline Phosphatase 55 U/L (38-126) 07/29/18 04:20 Lactate Dehydrogenase 772 U/L (313-618) H 07/27/18 15:17 Troponin I < 0.0120 ng/mL (0.00-0.120) 07/26/18 14:40 Total Protein 7.0 G/DL (6.3-8.2) 07/29/18 04:20 Albumin 3.8 g/dL (3.5-5.0) 07/29/18 04:20 Globulin 3.2 gm/dL (2.2-3.9) 07/29/18 04:20 Albumin/Globulin Ratio 1.2 (1.0-2.1) 07/29/18 04:20 Triglycerides 81 mg/DL (0-149) 07/27/18 04:31 Cholesterol 151 mg/dL (0-199) 07/27/18 04:31 LDL Cholesterol Direct 120 mg/dL (0-129) 07/27/18 04:31 HDL Cholesterol 27 MG/DL (30-70) L 07/27/18 04:31 Alpha Fetoprotein 1.5 IU/mL (0.0-7.22) 07/26/18 20:03 TSH 3rd Generation 3.79 mIU/ML (0.46-4.68) 07/27/18 04:31 Beta HCG, Quant < 2.39 mIU/mL 07/26/18 14:40 Fluid Source Pericardial 07/27/18 21:50 Fluid Appearance Bloody (CLEAR) 07/27/18 21:50 Fluid WBC 59725.0 /mm3 (0.0-300.0) H 07/27/18 21:50 Fluid RBC 75814.0 /mm3 (0.0-0.0) H 07/27/18 21:50 Fluid Tot Cell Count 100 (0-0) H 07/27/18 21:50 Fluid Neutrophils 22.0 % (0-0) H 07/27/18 21:50 Fluid Lymphocytes 65.0 % (0-0) H 07/27/18 21:50 Fld Monocyte/Macrophag 13 % (0-0) H 07/27/18 21:50 Fluid Glucose 81 mg/dL (NONE ESTABLISHED) 07/27/18 21:50 Fluid Total Protein 5.5 g/dL (NONE ESTABLISHED) 07/27/18 21:50 Fluid LDH 3163 IU (NONE ESTABLISHED) 07/27/18 21:50 Fluid Amylase < 30 mg/dL (NONE ESTABLISHED) 07/27/18 21:50 Fluid Comment Bloody 07/27/18 21:50 Blood Type O NEGATIVE 07/27/18 18:22 Antibody Screen Negative 07/27/18 18:22 Crossmatch See Detail 07/27/18 18:22 BBK History Checked No verified bt 07/27/18 18:22 - Date & Time of H&P Date of H&P: 07/27/18 Time of H&P: 10:30 Discharge Exam - Head Exam Head Exam: NORMAL INSPECTION - Eye Exam Eye Exam: PERRL - ENT Exam ENT Exam: Normal Exam - Neck Exam Neck exam: Normal Inspection - Respiratory Exam Respiratory Exam: NORMAL BREATHING PATTERN - Cardiovascular Exam Cardiovascular Exam: REGULAR RHYTHM Additional comments: Chest tube in place - GI/Abdominal Exam GI & Abdominal Exam: Normal Bowel Sounds, Soft - Extremities Exam Extremities exam: normal inspection - Back Exam Back exam: NORMAL INSPECTION - Neurological Exam Neurological exam: Alert, CN II-XII Intact, Oriented x3 Additional comments: No motor sensory deficit. - Psychiatric Exam Psychiatric exam: Normal Affect - Skin Skin Exam: Warm Discharge Plan - Follow Up Plan Condition: STABLE Disposition: Trans to Other Acute Care Hosp Instructions: Syncope (Fainting), Chest Pain Additional Instructions: Return if not better in 3 days. Referrals: [facility] [place] [Outside] - 07/27/18
--- NOTE | 2018-08-05 00:58 | OP ---
PROCEDURE DATE: 07/27/2018 PREOPERATIVE DIAGNOSES: 1. Massive mediastinal mass. 2. Pericardial effusion. 3. Cardiac tamponade. POSTOPERATIVE DIAGNOSES: 1. Massive mediastinal mass. 2. Pericardial effusion. 3. Cardiac tamponade. OPERATIONS PERFORMED: 1. Mediastinal exploration. 2. Partial resection of the mediastinal mass. 3. Pericardial window. SURGEON: Jeramie He MD. CAT OPERATOR: Sammy White DO; Dr. Stephanie Ventura. TYPE OF ANESTHESIA: Endotracheal general anesthesia. ANESTHESIOLOGIST: Brigido Hagen MD OPERATIVE FINDINGS: Mediastinum was completely frozen due to desmoplastic reaction from the tumor. Surgical pathway was completely covered with the tumor and access to the pericardium was technically challenging and painstakingly slow. Partial resection of the mediastinal mass covering the approach to the pericardium from subxiphoid approach had to be resected to visualize pericardium. DESCRIPTION OF PROCEDURE: The patient was taken to the operating room where under satisfactory endotracheal general anesthesia, operative field was prepared and draped in a sterile fashion. Through upper midline subxiphoid incision, surgery was started out; however, it was soon discovered that the xiphoid process had to be amputated to gain access to the mediastinal space and this was accordingly carried out in the usual manner. Bleeding points were electrocauterized. Usual maneuver to create a substernal tunnel using index finger proved to be extremely difficult because of desmoplastic reaction and the tumor mass, which was blocking the access to the pericardium. Subxiphoid tunnel was created painstakingly slowly using blunt dissection. In the process, mediastinal mass had to be removed. After more than 90 minutes of dissection and exploration of the mediastinal space, finally a small area of anterior surface of pericardium was visualized and then surrounding tumor mass was carefully peeled away or removed from the pericardium. Finally, the pericardium was impaled with a 21-gauge needle with a 10 mL syringe, which yielded serous fluid. The opening was subsequently enlarged laterally and inferiorly to create an adequate sized window. Pericardial fluid was next evacuated and sent out for usual studies, i.e., microbiological studies, AFB, fungus, cytology, cell count, and usual chemical analysis. Epicardial surface did not appear to be involved with the neoplastic process. Finally, two 28-[place] chest tubes were inserted in a crisscross fashion to drain right and left side of the pericardial space and were brought out through the abdominal stab wounds and these were secured to the skin edge with 0 silk sutures in the usual manner. Finally, incision was closed in layers, rectus fascia with continuous #1 PDS, subcutaneous fascia with continuous 0 Vicryl, and skin with subcuticular suture of 4-0 Monocryl. Sterile dressings were applied and taped in their usual manner. The patient tolerated the procedure very well and was transferred to the recovery room extubated and awake with good vital signs. Estimated blood loss was 50mL. Approximately, 500 mL of serous fluid was evacuated, and sponge, needle, and instrument counts were correct. Jeramie He MD MTDD
== END 2018-07-29 14:05 | disposition short-term general hospital (02) | DRG 272 ==
LOC: H.ER 13:50 → H.ERHOLD 17:05 → H.TEL 21:00 → H.ICU/CCU 07-27 16:45
PROVIDERS: ADMIT Internal Medicine Pulmonary Disease; ATTEND Internal Medicine Pulmonary Disease
PROC: 0W9900Z Drainage of Right Pleural Cavity with Drainage Device, Open Approach (ICD-10-PCS; 2018-07-27)
PROC: 0W9D00Z Drainage of Pericardial Cavity with Drainage Device, Open Approach (ICD-10-PCS; principal; 2018-07-27 18:15)
PROC: 0WBC0ZZ Excision of Mediastinum, Open Approach (ICD-10-PCS; 2018-07-27 18:15)
PROC: 0W9B00Z Drainage of Left Pleural Cavity with Drainage Device, Open Approach (ICD-10-PCS; 2018-07-27 18:15)
DX: I31.3 Pericardial effusion (noninflammatory) (principal); I31.4 Cardiac tamponade; R22.2 Localized swelling, mass and lump, trunk; I51.7 Cardiomegaly; D64.9 Anemia, unspecified; Z88.0 Allergy status to penicillin